=== PATIENT | female | born 1985 | race Caucasian/White ===

== ENCOUNTER → 2019-06-16 15:38 | Outpatient (CLI) | payer OTHER, SELFPAY ==
[2019-06-16 14:18] VITALS: BMI 19.1
[2019-06-16 16:32] LABS: Absolute Lymphocyte Count 2.17 X10^3/uL (0.83-4.51); Absolute Neutrophil Count 4.9 X10^3/uL (2.0-7.7); Basophil# 0.05 X10^3/uL; Basophil% 0.6 % (0-1); Eosinophil# 0.15 X10^3/uL; Eosinophils% 1.9 % (0-5); Hematocrit 36.4 % (37-47); Hemoglobin 12.4 g/dL (12.0-15.0); Lymphocyte # 2.17 X10^3/ul (4.0); Lymphocyte % 27.7 % (19-41); Mean Corp Hgb Conc 34.1 g/dL (32-36); Mean Corpuscular Hgb 30.6 pg (27.0-32.0); Mean Corpuscular Volume 89.9 fL (81-99); Mean Platelet Vol. 11.2 fl (6.2-12.0); Monocyte# 0.52 X10^3/uL; Monocyte% 6.6 % (0-10); NRBC Flagged by Analyzer 0 % (0-5); Neutrophil % 62.7 % (47-70); Platelet Count 298 K/mm3 (150-450); RBC Distribution Width CV 12.2 % (11.6-14.6); RBC Distribution Width SD 39.6 fl (35.1-43.9); Red Blood Count 4.05 M/mm3 (4.2-5.4); White Blood Count 7.8 K/mm3 (4.4-11.0)
[2019-06-16 17:24] LABS: Amphetamine Urine VISTA NEGATIVE (<1000 ng/mL); Barbiturate Urine VISTA NEGATIVE (< 200 ng/mL); Benzodiazepine Urine VISTA NEGATIVE (< 200 ng/mL); Cocaine Urine VISTA NEGATIVE (< 300 ng/mL); Ecstacy Urine VISTA NEGATIVE (< 500 ng/mL); Methadone Urine VISTA NEGATIVE (< 300 ng/mL); PCP Urine VISTA NEGATIVE (< 25 ng/mL); THC Urine VISTA POSITIVE (< 50 ng/mL); Vista UDS pH Range 7
[2019-06-16 18:57] LABS: Chlamydia Trachomatis by PCR Negative (Negative); Neisserai gonorrhoeae by PCR Negative (Negative); Probe Check PASS; Sample Adequacy Control PASS; Specimen Processing Control PASS
[2019-06-17 09:07] LABS: HIV - WCH Non-Reactive (Nonreactive); Hepatitis B Surface Antigen Non-Reactive (Nonreactive); Hepatitis C Antibody Non-Reactive (Nonreactive); Rubella IgG 83.3 IU/mL
[2019-06-21 12:42] LABS: HPV APTIMA, High Risk Negative (Negative)
[2019-06-23 00:51] LABS: Rapid Plasmin Reagin (RPR) NONREACTIVE (NONREACTIVE)
== END ==
PROVIDERS: Referring Provider Obstetrics & Gynecology; Visit Provider Obstetrics & Gynecology
DX: Z34.90 Encounter for supervision of normal pregnancy, unspecified, unspecified trimester (principal); Z12.4 Encounter for screening for malignant neoplasm of cervix
CPT/HCPCS: 36415; 80307; 85025; 86592; 86703; 86762; 86803; 86850; 86900; 86901; 87086; 87088; 87340; 87491; 87591; 87624; 88175; G0145

== ENCOUNTER → 2019-10-21 | Outpatient (CLI) | payer OTHER, SELFPAY ==
[2019-09-22 09:13] VITALS: BMI 20.5
[2019-10-21 09:46] LABS: Glucose Challenge Gest 1H 50g 76 mg/dL (70-140)
[2019-10-21 09:54] LABS: Absolute Lymphocyte Count 2.05 X10^3/uL (0.83-4.51); Absolute Neutrophil Count 7.4 X10^3/uL (2.0-7.7); Basophil# 0.07 X10^3/uL; Basophil% 0.7 % (0-1); Eosinophil# 0.22 X10^3/uL; Eosinophils% 2.1 % (0-5); Hematocrit 31.2 % (37-47); Hemoglobin 10.5 g/dL (12.0-15.0); Lymphocyte # 2.05 X10^3/ul (4.0); Lymphocyte % 19.1 % (19-41); Mean Corp Hgb Conc 33.7 g/dL (32-36); Mean Corpuscular Hgb 31.9 pg (27.0-32.0); Mean Corpuscular Volume 94.8 fL (81-99); Mean Platelet Vol. 11.2 fl (6.2-12.0); Monocyte# 0.76 X10^3/uL; Monocyte% 7.1 % (0-10); NRBC Flagged by Analyzer 0 % (0-5); Neutrophil % 68.9 % (47-70); Platelet Count 296 K/mm3 (150-450); RBC Distribution Width CV 12.8 % (11.6-14.6); RBC Distribution Width SD 44.1 fl (35.1-43.9); Red Blood Count 3.29 M/mm3 (4.2-5.4); White Blood Count 10.7 K/mm3 (4.4-11.0)
[2019-10-21 16:40] LABS: Amphetamine Urine VISTA NEGATIVE (<1000 ng/mL); Barbiturate Urine VISTA NEGATIVE (< 200 ng/mL); Benzodiazepine Urine VISTA NEGATIVE (< 200 ng/mL); Cocaine Urine VISTA NEGATIVE (< 300 ng/mL); Ecstacy Urine VISTA NEGATIVE (< 500 ng/mL); Methadone Urine VISTA NEGATIVE (< 300 ng/mL); PCP Urine VISTA NEGATIVE (< 25 ng/mL); THC Urine VISTA NEGATIVE (< 50 ng/mL); Vista UDS pH Range 6
== END | disposition home or self-care (01) ==
PROVIDERS: Nurse Practitioner Women's Health; Referring Provider Obstetrics & Gynecology; Visit Provider Obstetrics & Gynecology
DX: O09.90 Supervision of high risk pregnancy, unspecified, unspecified trimester (principal); O99.320 Drug use complicating pregnancy, unspecified trimester; F12.90 Cannabis use, unspecified, uncomplicated; Z36.89 Encounter for other specified antenatal screening; Z3A.00 Weeks of gestation of pregnancy not specified
CPT/HCPCS: 36415; 80307; 82950; 85025

== ENCOUNTER → 2019-11-04 | Outpatient (CLI) | payer OTHER, SELFPAY ==
[2019-11-04 09:46] VITALS: BMI 22.6
[2019-11-04 14:47] LABS: Amphetamine Urine VISTA NEGATIVE (<1000 ng/mL); Barbiturate Urine VISTA NEGATIVE (< 200 ng/mL); Benzodiazepine Urine VISTA NEGATIVE (< 200 ng/mL); Cocaine Urine VISTA NEGATIVE (< 300 ng/mL); Ecstacy Urine VISTA NEGATIVE (< 500 ng/mL); Methadone Urine VISTA NEGATIVE (< 300 ng/mL); PCP Urine VISTA NEGATIVE (< 25 ng/mL); THC Urine VISTA NEGATIVE (< 50 ng/mL); Vista UDS pH Range 6
== END | disposition home or self-care (01) ==
LOC: LABSPEC 12:40
PROVIDERS: Referring Provider Obstetrics & Gynecology; Visit Provider Obstetrics & Gynecology
DX: Z34.90 Encounter for supervision of normal pregnancy, unspecified, unspecified trimester (principal)
CPT/HCPCS: 80307

== ENCOUNTER → 2019-11-18 | Outpatient (CLI) | payer OTHER, SELFPAY ==
[2019-11-18 09:34] VITALS: BMI 22.2
--- NOTE | 2019-11-18 18:40 | US_ITS ---
STUDY: SECOND AND THIRD TRIMESTER OBSTETRICAL ULTRASOUND REASON FOR EXAM: Female, 34 years old GROWTH SMALL FOR GESTATIONAL AGE LMP: TECHNIQUE: Transabdominal TECHNICAL QUALITY: Adequate. PRIOR ULTRASOUND: None. FINDINGS: There is a single intrauterine fetus. The fetus is in a cephalic presentation. There is demonstrated cardiac activity with a heart rate of 133 bpm. There is a normal amniotic fluid volume. The largest amniotic fluid pocket measures 4.9 x 5.2 cm. The amniotic fluid index (MARYJO) is 10.55 cm. The placenta is anterior and fundal There are Grade 1 placental changes. The cervix measures 3.4 cm in length. The bilateral adnexal regions are nonvisualized. BIOMETRY: BPD: 7.2 cm: 28 weeks, 6 days HC: 28.16 cm: 30 weeks, 6 days AC: 25.58 cm: 29 weeks, 5 days FL: 5.95 cm: 30 weeks, 6 days CI: 0.79 FL/BPD: 0.83 FL/HC: FL/AC: 0.23 HC/AC: 1.1 age by current US: 29 weeks, 4 days. BETY by current US: 01/30/2020. Estimated weight: 1512 grams, +/- 227 grams, 57 %. age by prior US: weeks, days. BETY by prior US: . Age by LMP: 33 weeks, 0 days. BETY by LMP: 01/06/2020. US/OB Limited With Biometrics IMPRESSION: Viable intrauterine gestation approximately 29-30 weeks gestational age which is small relative to the menstrual age which was 33 weeks Recommend clinical correlation and follow-up studies Electronically Signed: Kye Hogue MD at 20:24 EDT , Service support ,
== END | disposition home or self-care (01) ==
PROVIDERS: Visit Provider Obstetrics & Gynecology
DX: O36.5930 Maternal care for other known or suspected poor fetal growth, third trimester, not applicable or unspecified (principal); Z3A.00 Weeks of gestation of pregnancy not specified
CPT/HCPCS: 76816

== ENCOUNTER → 2019-12-15 | Outpatient (CLI) | payer OTHER, SELFPAY ==
[2019-12-15 09:23] VITALS: BMI 22.2
== END | disposition home or self-care (01) ==
LOC: LABSPEC 13:43
PROVIDERS: Referring Provider Obstetrics & Gynecology; Visit Provider Obstetrics & Gynecology
DX: Z34.90 Encounter for supervision of normal pregnancy, unspecified, unspecified trimester (principal)
CPT/HCPCS: 87081

== ENCOUNTER 2019-12-18 23:30 | Inpatient (IN) | payer OTHER, SELFPAY ==
[2019-12-15 09:23] VITALS: BMI 22.2
[2019-12-18 23:14] VITALS: BMI 24.1
[2019-12-18 23:19] VITALS: TEMP 36.8; O2SAT 99
[2019-12-18 23:22] VITALS: BP 122/78
[2019-12-18 23:23] VITALS: PULSE 88; O2SAT 99
[2019-12-18 23:31] LABS: ROM Internal Control Test YES-OK TO RESULT pt. (Internal QC)
[2019-12-18 23:32] LABS: ROM Patient Test POSITIVE (Negative)
[2019-12-19] VITALS (83 sets, daily range): BP systolic 83–151; BP diastolic 42–83; PULSE 71–116; RESP 16; TEMP 36.1–37.1; O2SAT 82–100
[2019-12-19] MEDS: Lactated Ringers 1,000 ML 50 ML IV (00:25)
[2019-12-19 00:37] LABS: Absolute Lymphocyte Count 1.89 X10^3/uL (0.83-4.51); Absolute Neutrophil Count 9.4 X10^3/uL (2.0-7.7); Basophil# 0.08 X10^3/uL; Basophil% 0.6 % (0-1); Eosinophil# 0.15 X10^3/uL; Eosinophils% 1.2 % (0-5); Hematocrit 34.3 % (37-47); Hemoglobin 11.1 g/dL (12.0-15.0); Lymphocyte # 1.89 X10^3/ul (4.0); Lymphocyte % 14.6 % (19-41); Mean Corp Hgb Conc 32.4 g/dL (32-36); Mean Corpuscular Hgb 31.6 pg (27.0-32.0); Mean Corpuscular Volume 97.7 fL (81-99); Mean Platelet Vol. 11.5 fl (6.2-12.0); Monocyte# 0.97 X10^3/uL; Monocyte% 7.5 % (0-10); NRBC Flagged by Analyzer 0 % (0-5); Neutrophil % 72.3 % (47-70); Platelet Count 273 K/mm3 (150-450); RBC Distribution Width CV 12.8 % (11.6-14.6); Red Blood Count 3.51 M/mm3 (4.2-5.4)
[2019-12-19] MEDS: miSOPROStol 25 MCG TABLET VAGINAL (00:45)
[2019-12-19 01:26] LABS: Amphetamine Urine VISTA NEGATIVE (<1000 ng/mL); Barbiturate Urine VISTA NEGATIVE (< 200 ng/mL); Benzodiazepine Urine VISTA NEGATIVE (< 200 ng/mL); Cocaine Urine VISTA NEGATIVE (< 300 ng/mL); Ecstacy Urine VISTA NEGATIVE (< 500 ng/mL); Methadone Urine VISTA NEGATIVE (< 300 ng/mL); PCP Urine VISTA NEGATIVE (< 25 ng/mL); THC Urine VISTA NEGATIVE (< 50 ng/mL); Vista UDS pH Range 6
[2019-12-19] MEDS: Lactated Ringers 500 ML 999 ML IV ×4 (03:57→14:25)
[2019-12-19] MEDS: fentaNYL 100 MCG/2 ML Ampul IV (05:27)
[2019-12-19] MEDS: Oxytocin 30 units/NS 500 ml 30 UNITS/500 ML IV.SOLN IV (05:47)
[2019-12-19] MEDS: fentaNYL-bupivacaine (epidural) 100 ML BAG EPIDURAL ×2 (08:24→13:21)
[2019-12-19] MEDS: 0.9% Normal Saline Single 100 ML IV.SOLN. IY (09:29)
[2019-12-19] MEDS: ePHEDrine Sulfate 50 MG/ML Ampul 10 MG IV (10:07)
[2019-12-19] MEDS: Lactated Ringers 1,000 ML 200 ML IV (12:08)
--- NOTE | 2019-12-19 12:57 | HP.PCM_ITS ---
- Problem List (1) PROM (premature rupture of membranes) Status: Acute (2) Uterine size date discrepancy Status: Acute Comment: growth us ordered. nl nisha, preivous growth 57%ile (3) Influenza vaccination declined Status: Acute (4) Iron (Fe) deficiency anemia Status: Acute (5) Supervision of high-risk Status: Acute Qualifiers: Comment: PRR BETY 01/06/2020 girl Jessie Spouse: Solitario (6) Marijuana use Status: Acute Comment: + 06/16/19, quit, plan random screening.10/21/19 negative (7) Anxiety and depression Status: Acute Comment: currently in counseling- no medication (8) Status: Acute Qualifiers: Comment: declined genetic, carrier and NTD. anatomy normal, growth US normal History Date of Admission: 12/18/19 Final BETY: 01/06/20 Gestational age: 37 Weeks and 3 Days History of this : This is a 34 year-old, G 1P0 at 37 weeks gestational age presents with premature rupture of membranes. Patient complains of clear loss of fluid since 10:00 on 1010 and upon evaluation had a positive ROM plus in active leaking. Cervix was not noted to be dilated.. Medical History: Medical History (Last Reviewed 12/15/19 @ 09:23 by Jeannine Will) Anxiety and depression F41.9, F32.9 counseling virtual Grand mal seizure G40.409 1 seizure Allergies Sulfa (Sulfonamide Antibiotics) Allergy (Mild, Verified 12/18/19 23:30) other as a child Home Medications: Home Medications vitamin#30 30 mg iron-10 mg iron-folic acid 1 mg-omg3 capsule 1 cap PO DAILY 06/16/19 Smoking Status: Former smoker Substance Use Type: Marijuana Number of Fetus(es): 1 NST - FHR Rate Baby A Baseline: 150 Variability:: Moderate Accelerations:: 15 x 15 NST Reactive:: Yes FHR Category:: Category I Uterine Activity:: irregular History Past Pregnancies: Past Pregnancies Delivery Date Name GA/ Weeks Outcome Route Wt Infant Sex Labor Length Anesthesia Delivery Location Provider FOB Labs: Mom's Labs & Results 12/18/19 12/19/19 12/19/19 23:15 00:05 00:10 WBC 13.0 H RBC 3.51 L Hgb 11.1 L Hct 34.3 L MCV 97.7 MCH 31.6 MCHC 32.4 RDW Std Deviation 45.0 H RDW Coeff of Christine 12.8 Plt Count 273 MPV 11.5 Immature Gran % (Auto) 3.800 H Neut % (Auto) 72.3 H Lymph % (Auto) 14.6 L Morton % (Auto) 7.5 Eos % (Auto) 1.2 Baso % (Auto) 0.6 Absolute Neuts (auto) 9.4 H Absolute Lymphs (auto) 1.89 Nucleated RBC % 0 Vag Amniotic Fld Detect POSITIVE H Urine Opiates Screen NEGATIVE Urine Methadone Screen NEGATIVE Ur Barbiturates Screen NEGATIVE Ur Phencyclidine Scrn NEGATIVE Ur Amphetamines Screen NEGATIVE U Methamphetamin-MDMA NEGATIVE U Benzodiazepines Scrn NEGATIVE Urine Cocaine Screen NEGATIVE U Cannabinoids Screen NEGATIVE Ur Drug Screen Comment COVID-19 (ABEL) Blood Type Antibody Screen 12/19/19 12/19/19 00:25 00:35 WBC RBC Hgb Hct MCV MCH MCHC RDW Std Deviation RDW Coeff of Christine Plt Count MPV Immature Gran % (Auto) Neut % (Auto) Lymph % (Auto) Morton % (Auto) Eos % (Auto) Baso % (Auto) Absolute Neuts (auto) Absolute Lymphs (auto) Nucleated RBC % Vag Amniotic Fld Detect Urine Opiates Screen Urine Methadone Screen Ur Barbiturates Screen Ur Phencyclidine Scrn Ur Amphetamines Screen U Methamphetamin-MDMA U Benzodiazepines Scrn Urine Cocaine Screen U Cannabinoids Screen Ur Drug Screen Comment COVID-19 (ABEL) Not Detected Blood Type O POSITIVE Antibody Screen NEGATIVE Course Did the patient receive Yes care? Labs Blood Type: O RH: POSITIVE RPR/VDRL/Syphilis Nonreactive Rubella status Immune HbSAg Negative Date Done: 06/16/19 Chlamydia Negative Gonorrhea Negative HIV/AIDS Non-Reactive Group B Strep: Negative Current Obstetrical History Gestational Diabetes No Incompetent Cervix No Infertility No IUGR No Macrosomia No Hypertension/Pre-eclampsia No Placenta Previa/Abruption No PTL/PROM No Uterine anomaly No Oligohydramnios No Polyhydramnios No Multiple gestation No Past Medical History Asthma No Diabetes No Hypertension No Heart disease No Mitral valve prolapse No Neurologic/Seizure disorder/ Yes: grand mal seizure at age 13- tegratal for 2 Migraines years then stopped the medicati Kidney disease No Liver disease No Varicosities No Clotting disorders/Hx of DVT No Thyroid Dysfunction No Other medical diseases No Psychiatric disorders Yes: anxiety/depression Major trauma No Abnormal PAP smear Yes: 2010- negative ever since Sleep apnea No Mammogram in the last 2 years No Social History Marital Status: SINGLE Alleged father Solitario Fine Hx Smoking No Smoking Status Former smoker Substance Use Type Marijuana Have you had any previous pt used to smoke marijuana everyday. she stopped inpatient or outpatient as soon as she got and hasnt since. treatment she also smoked cigarettes and stopped that all together as well. Expected Delivery Method: Spontaneous Vaginal Review of Systems Constitutional: Denies: Fever, Malaise Eyes: Denies: Blurred vision, Vision Change HEENT: Denies: Head Aches, Visual Changes Cardiovascular: Denies: Chest Pain, Palpitations Respiratory: Denies: Cough, Shortness of Breath, Wheezing Gastrointestinal: Denies: Abdominal Pain, Diarrhea, Nausea, Vomiting Genitourinary: Denies: Dysuria, Hematuria Gynecological: Reports: Vaginal discharge Musculoskeletal: Denies: Joint Pain, Muscle pain Skin: Denies: Lesions, Rash Neurological: Denies: Blurred vision, Focal weakness, Headaches Psychiatric: Denies: Anxiety, Depression Endocrine: Denies: Heat/ Cold Intolerance Hematologic/ Lymphatic: Denies: Easy Bruising, Easy Bleeding Physical Exam Vitals: Vital Signs Temp Pulse BP Pulse Ox 97.8 F 93 93/55 L 98 12/19/19 12:06 12/19/19 12:06 12/19/19 12:06 12/19/19 12:06 General: Alert, Cooperative, No apparent distress HEENT: Atraumatic, Normocephalic. Negative for: Thyromegaly, Lymphadenopathy Cardiovascular: Regular rate Lungs: Normal air movement Abdomen: Soft, Non Tender, Gravid Neurological: Deep Tendon Reflexes 2+/4 and Symmetrical, Neuro grossly intact. Negative for: Clonus CODING TECHNICIAN: Normal external genitalia. Negative for: Vulvar lesions Estimated gestational size: Small for gestational age - EFW 4 1/2 5# Presentation: Cephalic Cervix Dilation (cm): 0 Station: 0 Effacement (%): 50 Assessment/Plan All Active Problems (Last Reviewed 12/15/19 @ 09:23 by Jeannine Will) PROM (premature rupture of membranes) (Acute) Uterine size date discrepancy (Acute) Influenza vaccination declined (Acute) Iron (Fe) deficiency anemia (Acute) Supervision of high-risk (Acute) Marijuana use (Acute) Anxiety and depression (Acute) (Acute) This is a 34 year-old, , at 37 weeks gestational age presents with PROM. Patient presents with premature rupture membranes cervix closed with no regular contractions. Recommend starting with Cytotec, 1 dose given and some intermittent heart rate decelerations were noted and therefore expectant management followed by Pitocin were recommended to be started for augmentation if needed. Overall reassuring tracing. Pain management: Plans epidural. GBS negative. Management of any complications: Significant other tested positive for COVID the beginning of the week, patient has been avoiding direct contact and COVID test performed now is negative for her. Patient is asymptomatic and afebrile. Patient measuring small for gestational age. Estimated weight may be 2500 g recommend having bladder blower at delivery. I have reviewed the [facility] and made any clinically relevant updates.
--- NOTE | 2019-12-19 13:16 | PCM.PN.BLA ---
Progress Note heart rate tracing 150 and mild to moderate variability. Isolated late deceleration and occasional episodes of periodic mild variables. Variable decelerations resolve with position changes and IV fluid bolus. Cervical exam after 1 cm but head is at 0 station. Recommend Ruby bulb be placed, discussed with patient possible increased risk for infection but reasonable consideration versus increasing Pitocin due to heart rate tracing. No signs or symptoms of clinical infection at this time. STROKE Vital Signs/Narrative: Vital Signs Temp Pulse BP Pulse Ox 12/19/19 12:59 98.3 F 99 12/19/19 12:58 91 100/56 L 12/19/19 12:06 97.8 F 93 93/55 L 98 12/19/19 11:00 98.3 F 12/19/19 10:54 90 101/58 L 12/19/19 10:49 111 H 99/57 L 12/19/19 10:47 95 99 12/19/19 10:44 103 H 100/59 L 12/19/19 10:42 116 H 100 12/19/19 10:40 113 H 104/59 L 12/19/19 10:37 105 H 100 12/19/19 10:36 102 H 111/57 L 12/19/19 10:32 104 H 100 12/19/19 10:29 97 94/55 L 12/19/19 10:27 94 100 12/19/19 10:25 92 100/55 L 12/19/19 10:22 88 100 12/19/19 10:20 105 H 99/56 L 12/19/19 10:17 87 100 12/19/19 10:14 93 95/54 L 12/19/19 10:12 87 100 12/19/19 10:09 86 92/56 L 12/19/19 10:07 85 100 12/19/19 10:04 90 89/54 L 12/19/19 10:02 98.0 F 82 91/52 L 100 12/19/19 09:55 85 88/52 L 12/19/19 09:49 81 83/51 L 12/19/19 09:45 77 83/51 L 12/19/19 09:39 83 87/50 L 12/19/19 09:35 80 83/46 L 12/19/19 09:30 89 100/57 L 12/19/19 09:24 97 93/50 L 12/19/19 09:20 91 99/56 L
[2019-12-19] MEDS: Amnioinfusion- 0.9% NS 1,000 ML IV.SOLN. INTRA-UTER (14:05)
--- NOTE | 2019-12-19 14:08 | PCM.PN.BLA ---
Progress Note called to evaluate due to FHT 150 min variability recurrent mild periodic variables cat II tracing. cash bulb removed no 1-2 90 0 station. cervix still firm. fse and iupc placed, will give amnioinfusion now and change position again. discussed with patient exp management at this time, continue monitor to ensure tolerance of labor. pitocin at 8 mU, will titrate PRN. STROKE Vital Signs/Narrative: Vital Signs Temp Pulse BP Pulse Ox 12/19/19 13:56 97.8 F 106 H 100/58 L 99 12/19/19 12:59 98.3 F 99 12/19/19 12:58 91 100/56 L 12/19/19 12:06 97.8 F 93 93/55 L 98 12/19/19 11:00 98.3 F 12/19/19 10:54 90 101/58 L 12/19/19 10:49 111 H 99/57 L 12/19/19 10:47 95 99 12/19/19 10:44 103 H 100/59 L 12/19/19 10:42 116 H 100 12/19/19 10:40 113 H 104/59 L 12/19/19 10:37 105 H 100 12/19/19 10:36 102 H 111/57 L 12/19/19 10:32 104 H 100 12/19/19 10:29 97 94/55 L 12/19/19 10:27 94 100 12/19/19 10:25 92 100/55 L 12/19/19 10:22 88 100 12/19/19 10:20 105 H 99/56 L 12/19/19 10:17 87 100 12/19/19 10:14 93 95/54 L 12/19/19 10:12 87 100 12/19/19 10:09 86 92/56 L
[2019-12-19] MEDS: Sodium Citrate/Citric Acid 30 ML UDC PO (15:21)
[2019-12-19] MEDS: Cefazolin 2 GM in 0.9% Normal Saline 100 ML IV (15:32)
--- NOTE | 2019-12-19 16:28 | PCM.OPRPT ---
Problem List (1) PROM (premature rupture of membranes) Status: Acute (2) Uterine size date discrepancy Status: Acute Comment: growth us ordered. nl nisha, preivous growth 57%ile (3) Influenza vaccination declined Status: Acute (4) Iron (Fe) deficiency anemia Status: Acute (5) Supervision of high-risk Status: Acute Qualifiers: Comment: PRR BETY 01/06/2020 girl Jessie Spouse: Solitario (6) Marijuana use Status: Acute Comment: + 06/16/19, quit, plan random screening.10/21/19 negative (7) Anxiety and depression Status: Acute Comment: currently in counseling- no medication (8) Status: Acute Qualifiers: Comment: declined genetic, carrier and NTD. anatomy normal, growth US normal Delivery Classification: SCOTT Final BETY: 01/06/20 Gestational age: 37 Weeks and 3 Days psychiatric nursing aide: Bridget Mckeon Type of Anesthesia:: Epidural Special Medications: none Implants Used: none Date of Procedure: 12/19/19 Pre-Operative Diagnosis: NRFHTS remote from delivery 2 cm PROM suspected IUGR Post-Operative Diagnosis: sga Description of Procedure: Patient presented with premature rupture of membranes at 37 weeks and was noted to be 0 cm dilated. Patient was given a dose of Cytotec due to several intermittent decelerations patient was monitored expectantly and then started on Pitocin for induction of labor due to lack of spontaneous cervical change. Ruby bulb was also placed to aid in cervical dilation however after 4 hours the Ruby bulb still had not spontaneously fallen out and therefore it was removed and patient was noted to be 2/80 and 0 station but firm consistency to the cervix. Patient had intermittent category 2 tracing with periods of minimal to moderate variability and periods of mild to moderate periodic variable decelerations that initially resolved with position changes and amnioinfusion. However the pattern remained persistent with recurrent periodic variable decelerations minimal variability and no further cervical change despite interventions including turning off Pitocin. Patient was remote from delivery and therefore the decision was made to proceed with a primary . epidural dosed and found to be adequate. The patient was placed in the dorsal supine position with leftward tilt. Patient was prepped and draped in the normal sterile fashion. Pfannenstiel skin incision was made with the scalpel and carried through to the underlying layer of fascia with the scalpel. Fascia was nicked in the midline and the incision extended laterally. The rectus bellies were dissected off superiorly and inferiorly with out complication both sharply and bluntly. The peritoneum was entered digitally. The incision was stretched and a low transverse uterine incision was made with the scalpel. The infant's head was delivered atraumatically followed by the anterior and posterior shoulders without complication the rest of the delivered. The cord was clamped and cut and the was handed off to awaiting nurse. The placenta was delivered spontaneously immediately following and was noted to be intact and have a three-vessel cord. The uterus was exteriorized cleared of all clots and debris, and the incision was closed in a double layer closure using #1 Monocryl. The ovaries and fallopian tubes were noted to be within normal limits. The uterus was returned to the maternal abdomen and gutters were cleared of all clots and debris. The peritoneum was closed with 3-0 Monocryl in a running fashion. Gloves were changed prior to fascial closure. Fascia was closed with 0 PDS in a running fashion. Subcutaneous tissue was copiously irrigated and the skin was closed with 3-0 Monocryl in a subcuticular fashion. Mepilex dressing was applied without complication. Patient was taken to recovery in stable condition. It was discussed with the patient that based on the clinical information obtained during this encounter, combined with her history, at this time I would recommend vaginal or for future deliveries if further pregnancies are desired. Amniotic Membrane Rupture Type: Spontaneous Amniotic Fluid Description: Clear Placenta Disposition: [facility] Cord Entanglement: None Esitmated Blood Loss (ml): 600 Gender: Female Delayed cord clamping: Yes Antibiotic Given: Ancef 2 grams IV x1, Zithromax 500 mg/5 mL X1 Pt instructed on risks of surgery: Bleeding, Anesthesia Risks, Infection, Injury to surrounding structure(s) including bowel and bladder Complications: None - Admit VTE Documentation VTE Present on Admission: No VTE Mechan Device Prophylaxis: SCD's Multi Select Codes - Urinary/Genital Urinary/Genital CPT Codes: 92206 Delivery [facility]
[2019-12-19] MEDS: Oxytocin 30 units/NS 500 ml 30 UNITS/500 ML IV.SOLN 167 UNITS IV (16:45)
--- NOTE | 2019-12-19 17:02 | PLAC_PTH ---
PATIENT: RAMÍREZ SKY LOC: [facility] U#:[id number] AGE/SX: 34/F [facility]: Dr. Juana Duncan MD : 1985 BED: 1 DIS: 12/22/2019 SPEC #: [id number] RECD: 12/19/19 17:56 STATUS: SUMAN WENDI #: [id number] GLORIA: 12/19/19 17:[address]: Juana Duncan DEPT: SURGICAL PATHOLOGY RECD BY: Judith Jose ENTERED: 12/20/19 08:18 SP TYPE: PLACENTA OTHR DR: No Primary Care Phys Tissues: Placenta, NOS Procedures: Surgery Specimen Level V HEADER OPERATION: Primary section PRE-OP DIAGNOSIS: Labor TISSUE SUBMITTED: Placenta MICROSCOPIC DIAGNOSIS Rolle placenta (416 gm): Umbilical cord - trivascular with no inflammation. Placental membranes - mild decidual chronic inflammation. Placental disc - remote infarct, intravillous congestion and mild chronic decidual inflammation. AM:rose 12/22/19 MICROSCOPIC DESCRIPTION Slides are reviewed. GROSS DESCRIPTION SPECIMEN: PLACENTA / CLINICAL INFORMATION: A. Weight: 2.07 kg B. Gestational Age: 37 weeks C. Sex: Female PLACENTAL WEIGHT (POST FIXATION): 416 gm PLACENTAL DIMENSIONS: 20 x 18 x 3 cm PLACENTAL SHAPE: Triangular PLACENTAL WEIGHT FOR GESTATIONAL AGE: Within 10-99th percentile MEMBRANES - Present A. Insertion: Marginal B. Site of rupture from edge: 4 cm from edge of placental disc C. Color of membrane: Pennington-rodrigez D. Abnormalities: None UMBILICAL CORD - Present A. Color: Pennington-rodrigez B. Insertion: Paracentrally 1 cm away from the margin C. Length: 33 cm D. Diameter: 1.2 cm E. Number of vessels: Three F. Abnormalities: None PLACENTAL DISC - Present A. Color of surface: Pennington-rodrigez B. surface abnormalities: None C. Maternal cotyledons: Intact with minimal tears D. Attached retro placental clot: No clot E. Cut surface: Dark red and spongy F. Lesions: Sections reveal a pennington, indurated area measuring 1 cm in greatest dimension. G. Separate clot: Absent SECTIONS SUBMITTED: 1. Membrane roll 2. Cord, maternal end 3. Cord, end 4. Placental disc, and maternal surfaces, lesion 5. Placental disc, and maternal surfaces 6. Placental disc, and maternal surfaces SJ:rose 12/21/19 TC:3 CPT: 26034
[2019-12-19 18:20] LABS: Pathology Specimen OB SEE PATHOLOGY REPORT
[2019-12-19] MEDS: Acetaminophen 500 MG Tablet 1000 MG PO ×2 (18:28→23:53)
[2019-12-19] MEDS: Lactated Ringers 1,000 ML 100 ML IV (19:45)
[2019-12-19] MEDS: Ketorolac 30 MG/ML Syringe IV (22:21)
[2019-12-20] VITALS (7 sets, daily range): BP systolic 84–113; BP diastolic 42–66; PULSE 68–96; RESP 16; TEMP 36.6–36.9; O2SAT 99–100
[2019-12-20] MEDS: 0.9% Saline Lock 10 ML Syringe IV (03:56)
[2019-12-20] MEDS: Ketorolac 30 MG/ML Syringe IV (03:56)
[2019-12-20 04:38] LABS: Hematocrit 25.6 % (37-47); Hemoglobin 8.9 g/dL (12.0-15.0); Mean Corp Hgb Conc 34.8 g/dL (32-36); Mean Corpuscular Hgb 32.8 pg (27.0-32.0); Mean Corpuscular Volume 94.5 fL (81-99); Mean Platelet Vol. 11.8 fl (6.2-12.0); Platelet Count 233 K/mm3 (150-450); RBC Distribution Width SD 43.8 fl (35.1-43.9); Red Blood Count 2.71 M/mm3 (4.2-5.4); White Blood Count 20.5 K/mm3 (4.4-11.0)
[2019-12-20] MEDS: Acetaminophen 500 MG Tablet 1000 MG PO ×3 (05:56→18:50)
--- NOTE | 2019-12-20 08:05 | PCM.PN.OB ---
Patient Problems: Active and Suspected Problems (Last Reviewed 12/15/19 @ 09:23 by Jeannine Will) PROM (premature rupture of membranes) (Acute) Objective: Patient doing well without complaints. Tolerating PO. Ambulating and voiding without difficulty. /baby in SPC due to blood sugars. Denies chest pain, shortness of breath, calf pain/swelling, fevers, chills, lightheadedness. Noted WBC at 20, Hgb 8.9. - Physical Exam Vitals/I&O's: Vital Signs Temp Pulse Resp BP Pulse Ox 97.9 F 75 16 95/53 L 100 12/20/19 03:50 12/20/19 03:50 12/20/19 03:50 12/20/19 03:50 12/20/19 03:50 Oxygen Delivery Method Room Air Weight: 154 lb 2 oz Body Mass Index (BMI) 24.1 Intake and Output for Last 24 Hours 12/18/19 12/19/19 12/20/19 23:59 23:59 23:59 Intake Total 5160.63 / 5160.63 818.33 / 818.33 Output Total 3550 / 3550 600 / 600 Balance 1610.63 / 1610.63 218.33 / 218.33 General: Alert, Oriented x3 Abdomen: Soft, Non-Distended, - - FF below U. Dressing dry and intact. Appropriately tender Laboratory Results 12/19/19 00:05: MCV 97.7, MCHC 32.4 D 12/20/19 04:10: WBC 20.5 H, RBC 2.71 L, Hgb 8.9 L, Hct 25.6 L, MCV 94.5, MCH 32.8 H, MCHC 34.8, RDW Std Deviation 43.8, RDW Coeff of Christine 13.0, Plt Count 233, MPV 11.8 Current Medications Acetaminophen (Tylenol) 1,000 mg PO Q6 [facility] Last Admin: 12/20/19 05:56 Dose: 1,000 mg Documented by: Bisacodyl (Dulcolax) 10 mg RECTAL UD PRN PRN Reason: If no BM Hydrocortisone (Hytone) 1 applic TOPICAL TID PRN PRN; Protocol PRN Reason: Discomfort Lactated Ringer's () 1,000 mls @ 100 mls/hr IV .Q10H [facility] Last Infusion: 12/20/19 03:56 Dose: Infused Documented by: Ketorolac Tromethamine (Toradol (Bkc)) 30 mg IV Q6H [facility] Stop: 12/20/19 16:01 Last Admin: 12/20/19 03:56 Dose: 30 mg Documented by: Methylergonovine Maleate (Methergine) 0.2 mg IM X1 PRN PRN Reason: Uterine Atony Naproxen (Naprosyn) 500 mg PO Q8 [facility] Ondansetron HCl (Zofran) 4 mg IV Q4H PRN PRN PRN Reason: Nausea Oxycodone HCl (Oxyir) 5 - 10 mg PO Q4H PRN PRN PRN Reason: Pain Score 4-10 Prochlorperazine Edisylate (Compazine Iv) 10 mg IV Q6H PRN PRN PRN Reason: NAUSEA Senna/Docusate Sodium (Senokot-S, Surekha-Colace) 0 tablet PO DAILY [facility] Simethicone (Mylicon) 80 mg PO PCHS PRN PRN Reason: Indigestion/stomach pain Sodium Chloride () 5 - 15 ml IV UD PRN PRN Reason: SALINE FLUSH Last Admin: 12/20/19 03:56 Dose: 10 ml Documented by: Medical Necessity - Tobacco Use Smoking Status: Former smoker Assessment/Plan All Active Problems (Last Reviewed 12/15/19 @ 09:23 by Jeannine Will) PROM (premature rupture of membranes) (Acute) Uterine size date discrepancy (Acute) Influenza vaccination declined (Acute) Iron (Fe) deficiency anemia (Acute) Supervision of high-risk (Acute) Marijuana use (Acute) Anxiety and depression (Acute) (Acute) s/p LTCS PPD # 1 1. routine post care 2. breast feeding- support given 3. rh positive 4. rubella immune 5. Repeat CBC later today.
[2019-12-20] MEDS: Naproxen 250 MG Tablet 500 MG PO ×2 (11:03→21:45)
[2019-12-20] MEDS: Senna/Docusate Sodium 1 Tablet PO (11:03)
[2019-12-20] MEDS: oxyCODONE 5 MG Tablet PO ×2 (13:20→17:27)
--- NOTE | 2019-12-20 16:01 | CASEMGMT ---
Social Work Assessment Labor and Delivery Unit Date of Referral: 12/19/2019 Time of Referral: 1038 Referred By: Nursing staff Date of Intervention: 12/20/2019 Time of Intervention: 1601 Reason for Referral: Mother of baby (MOB) with positive THC during . MOB with history of Anxiety and Depression. History obtained from: MOB, Father of baby (FOB), MOB?s mother (Gilda Holbrook), chart, nursing staff. Household composition: MOB, FOB (Solitario Fine), and now this , Jessie Fine live in private home together. Patient's parent/guardian status: MOB and FOB have been together for 2 ? years. MOB reports that was planned and accepted. FOB testing positive for COVID-19 the day prior to MOB going into labor and unable to physically be present for delivery. MOB?s mother, Gilda Holbrook present as support person. Medical History: MOB with history prior to this infant being born. MOB with Emergency at 37 weeks. MOB with history of Anxiety and Depression. MOB with appropriate care visits. Female born on 12/19/2017 with weight of 2010g and apgars of 9 and 9 at 1min and 5min. Infant to follow with [facility] Pediatricians. Educational Status: MOB denies any issues with comprehension or understanding. Financial Status: MOB denies any current financial concerns as MOB?s mother is assisting. FOB works full-time for [employer]. MOB currently plans to be a homemaker until adjusting to life with and then finding a job. Infant Supplies: MOB reports to have needed supplies including a crib and car seat. MOB reports plan to breast feed. MOB reports is going well. Childcare/Caregiver(s): MOB plans to be primary care provider for until returning to work when MOB plans to utilize family supports. Transportation: Denies any issues with transportation. Programs/Agencies Involved: Reports to have applied for [facility] and plans to follow up when is discharged. Children Services/Legal Issues: Denies any history of children services or legal issues. Mental Health History: MOB reports history of Anxiety and Depression. MOB reports history of counseling services but ?my counselor was becoming my friend.? MOB denies active counseling services but interest in establishing with counseling services again. MOB denies any suicidal thoughts/plans/intents. MOB reporting that prior work environment was ?very toxic.? MOB reports to have had ?high? anxiety from past work environment. MOB reporting to feel ?good now.? This social human services assistants able to facilitate conversation with MOB about risk for Depression including signs and symptoms. MOB receptive to conversation and engaged. Substance Use History: MOB with history of daily use of THC to manage Anxiety per MOB. MOB reports to have stopped using THC when discovering . MOB with positive tox screen for THC on 06/16/2019 and aware of pending meconium. MOB denies any other substance abuse/use. FOB currently smokes tobacco and ?some weed.? MOB and FOB able to report that if substance is being used to not be used around and that infant would be left in the charge of a non-using adult. MOB also reporting that there is no smoking inside the home. Maternal and Infant Drug Screens: MOB with positive tox screen for THC on 06/16/2019. MOB with negative tox screen on admission. with negative urine screen. with pending meconium. PHQ9: Did not trigger. Family/Social Stressors: FOB with current diagnosis of COVID-19. currently in SCN due to blood sugars needing to be monitored. Support Systems: MOB reports to have support from FOB and MOB?s mother. MOB denies any needs/concerns for supports. FOB is to no longer be injections on 12/26/2019 per MOB?s report. Not sure when will be cleared for discharge. MOB has been speaking with nursing staff about safe plan for with FOB being positive for COVID-19. Depression and Anxiety/Shaken Baby/Safe Sleeping: This social human services assistants providing MOB with written information on PPD and Anxiety, Shaken Baby, Safe Sleeping, Counseling resources, and [facility] resources. MOB and FOB able to respond appropriately to Shaken Baby and Safe Sleeping prompts. ASSESSMENT: Met with MOB, MOB?s mother, and in SCN. FOB present via video chat on phone. This social human services assistants introduced self and social human services assistants role. MOB agreeable to speak with this social human services assistants. MOB providing verbal permission for this social human services assistants to speak openly with MOB?s mother (Gilda) present and FOB present via video chat. This social human services assistants open with MOB that there could be some sensitive information asked during assessment. MOB voicing understanding and wanting Gilda and FOB to be apart of the conversation. MOB reports to have appropriate supports in the community. MOB presenting with a positive and engaged affect. This social human services assistants senses tension when broaching topic of THC usage between MOB and Gilda. MOB confirms for this social human services assistants to continue. MOB reports that Gilda is a positive support for MOB and ?needs to know what is going on.? Gilda responding appropriately and supportively. Gilda along with this social human services assistants encouraging MOB to establish with counseling services again. MOB reports plan to no longer use THC and abstain from smoking tobacco. MOB reports ?I have been doing well.? MOB reports understanding and agreeing with importance of counseling for MOB. MOB open to this social human services assistants providing MOB with list of counseling agencies/supports. MOB with verbal plan to set up counseling appointment once is discharged to the community. MOB holding infant throughout assessment. MOB with appropriate interaction with infant. MOB reports to have a connection with . FOB with appropriate affect and presenting as appropriate emotional regulation with limitations to be able to see infant currently. MOB voicing no needs and no further questions. Active support and listening provided. Safe Plan of Care for infant related to substance use: MOB plans to no longer use THC but if MOB would relapse plan is to not use around infant and to leave in the charge of a non-using adult. PLAN: Infant to discharge to home with MOB and FOB. Pending meconium. Will continue to follow and make referrals as indicated. Amie ABDALLA, [place]
[2019-12-21] MEDS: Acetaminophen 500 MG Tablet 1000 MG PO ×4 (00:48→20:04)
[2019-12-21 02:14] VITALS: BP 109/62; PULSE 84; RESP 16; TEMP 36.8
[2019-12-21] MEDS: Naproxen 250 MG Tablet 500 MG PO ×3 (05:38→22:00)
[2019-12-21] MEDS: oxyCODONE 5 MG Tablet PO ×3 (05:50→21:14)
[2019-12-21 06:05] VITALS: RESP 18; O2SAT 99
[2019-12-21 06:24] LABS: Absolute Neutrophil Count 9.5 X10^3/uL (2.0-7.7); Basophil# 0.05 X10^3/uL; Basophil% 0.4 % (0-1); Eosinophil# 0.11 X10^3/uL; Eosinophils% 0.8 % (0-5); Hematocrit 24.6 % (37-47); Hemoglobin 8.1 g/dL (12.0-15.0); Mean Corp Hgb Conc 32.9 g/dL (32-36); Mean Corpuscular Hgb 32.1 pg (27.0-32.0); Mean Corpuscular Volume 97.6 fL (81-99); Mean Platelet Vol. 11.4 fl (6.2-12.0); Monocyte# 0.79 X10^3/uL; Monocyte% 5.8 % (0-10); NRBC Flagged by Analyzer 0 % (0-5); Neutrophil # 9.53 X10^3/uL (2.7-7.7); Neutrophil % 70.4 % (47-70); Platelet Count 227 K/mm3 (150-450); RBC Distribution Width CV 13.3 % (11.6-14.6); RBC Distribution Width SD 47.1 fl (35.1-43.9); Red Blood Count 2.52 M/mm3 (4.2-5.4); White Blood Count 13.5 K/mm3 (4.4-11.0)
--- NOTE | 2019-12-21 07:32 | PCM.PN.OB ---
Patient Problems: Active and Suspected Problems (Last Reviewed 12/15/19 @ 09:23 by Jeannine Will) PROM (premature rupture of membranes) (Acute) Subjective: patient recovering well, denies CP, SOB, N, or V. patient is ambulating, voiding ,tolerating adequate po, and pain is controlled with oral medications. - Physical Exam Vitals/I&O's: Vital Signs Temp Pulse Resp BP Pulse Ox 98.3 F 84 18 109/62 99 12/21/19 02:14 12/21/19 02:14 12/21/19 06:05 12/21/19 02:14 12/21/19 06:05 Oxygen Delivery Method Room Air Weight: 154 lb 2 oz Body Mass Index (BMI) 24.1 Intake and Output for Last 24 Hours 12/19/19 12/20/19 12/21/19 23:59 23:59 23:59 Intake Total 5160.63 / 5160.63 818.33 / 818.33 Output Total 3550 / 3550 850 / 850 Balance 1610.63 / 1610.63 -31.67 / -31.67 General: Alert, Oriented x3 Laboratory Results 12/21/19 05:45: WBC 13.5 H, RBC 2.52 L, Hgb 8.1 L, Hct 24.6 L, MCV 97.6, MCH 32.1 H, MCHC 32.9 D, RDW Std Deviation 47.1 H, RDW Coeff of Christine 13.3, Plt Count 227, MPV 11.4, Immature Gran % (Auto) 2.600 H, Neut % (Auto) 70.4 H, Lymph % (Auto) 20.0, [place] % (Auto) 5.8, Eos % (Auto) 0.8, Baso % (Auto) 0.4, Absolute Neuts (auto) 9.5 H, Absolute Lymphs (auto) 2.70, Nucleated RBC % 0 Current Medications Acetaminophen (Tylenol) 1,000 mg PO Q6 [facility] Last Admin: 12/21/19 07:02 Dose: 1,000 mg Documented by: Bisacodyl (Dulcolax) 10 mg RECTAL UD PRN PRN Reason: If no BM Hydrocortisone (Hytone) 1 applic TOPICAL TID PRN PRN; Protocol PRN Reason: Discomfort Methylergonovine Maleate (Methergine) 0.2 mg IM X1 PRN PRN Reason: Uterine Atony Naproxen (Naprosyn) 500 mg PO Q8 [facility] Last Admin: 12/21/19 05:38 Dose: 500 mg Documented by: Ondansetron HCl (Zofran) 4 mg IV Q4H PRN PRN PRN Reason: Nausea Oxycodone HCl (Oxyir) 5 - 10 mg PO Q4H PRN PRN PRN Reason: Pain Score 4-10 Last Admin: 12/21/19 05:50 Dose: 10 mg Documented by: Prochlorperazine Edisylate (Compazine Iv) 10 mg IV Q6H PRN PRN PRN Reason: NAUSEA Senna/Docusate Sodium (Senokot-S, Surekha-Colace) 0 tablet PO DAILY [facility] Last Admin: 12/20/19 11:03 Dose: 1 tablet Documented by: Simethicone (Mylicon) 80 mg PO PCHS PRN PRN Reason: Indigestion/stomach pain Last Admin: 12/21/19 05:57 Dose: 80 mg Documented by: Sodium Chloride () 5 - 15 ml IV UD PRN PRN Reason: SALINE FLUSH Last Admin: 12/20/19 03:56 Dose: 10 ml Documented by: Medical Necessity - Tobacco Use Smoking Status: Former smoker Assessment/Plan All Active Problems (Last Reviewed 12/15/19 @ 09:23 by Jeannine Will) PROM (premature rupture of membranes) (Acute) Uterine size date discrepancy (Acute) Influenza vaccination declined (Acute) Iron (Fe) deficiency anemia (Acute) Supervision of high-risk (Acute) Marijuana use (Acute) Anxiety and depression (Acute) (Acute) s/p LTCS PPD # 2 1. routine post care 2. breast feeding- support given 3. rh positive 4. rubella immune
[2019-12-21 08:00] VITALS: BP 99/62; PULSE 74; RESP 16; TEMP 36.6; O2SAT 97
[2019-12-21] MEDS: Senna/Docusate Sodium 1 Tablet PO (10:45)
[2019-12-21 13:55] VITALS: BP 110/70; PULSE 85; RESP 16; TEMP 36.3; O2SAT 98
--- NOTE | 2019-12-21 16:24 | CASEMGMT ---
Social Work This social sciences department chair checking in with MOB in SCN. Solitario COLES present. This social sciences department chair inquiring if Solitario has been cleared for COVID-19. Solitario reports to have been notified by testing sight that there was a mistake and Solitario was not positive for COVID-19. Solitario reports to be frustrated that Solitario missed delivery of due to error. This social sciences department chair normalizing emotions. Solitario presenting as pleasant and engaged with MOB and . Active listening and support provided. MOB reports to be doing well. MOB currently infant. Meconium continues to be pending for infant. Social work to continue to follow as needed. Amie Vizcarra CERTIFIED RESIDENTIAL MEDICATION AIDE, MALATHIS
[2019-12-21 21:06] VITALS: BP 98/58; PULSE 81; RESP 14; TEMP 36.6
[2019-12-22 01:45] VITALS: BP 110/51; PULSE 75; RESP 14; TEMP 36.4
[2019-12-22] MEDS: Acetaminophen 500 MG Tablet 1000 MG PO ×2 (01:45→09:09)
[2019-12-22] MEDS: Naproxen 250 MG Tablet 500 MG PO (06:06)
[2019-12-22 07:44] VITALS: BP 104/66; PULSE 78; RESP 16; TEMP 36.5; O2SAT 99
--- NOTE | 2019-12-22 07:59 | PN.OBGYN_ITS ---
Patient Problems: Active and Suspected Problems (Last Reviewed 12/15/19 @ 09:23 by Jeannine Will) PROM (premature rupture of membranes) (Acute) Subjective: Patient doing well without complaints. Tolerating PO. Ambulating and voiding without difficulty. Breast feeding well. Denies chest pain, shortness of breath, calf pain/swelling, fevers, chills, lightheadedness.Baby in SPC but discharge planned today - Physical Exam Vitals/I&O's: Vital Signs Temp Pulse Resp BP Pulse Ox 97.7 F L 78 16 104/66 99 12/22/19 07:44 12/22/19 07:44 12/22/19 07:44 12/22/19 07:44 12/22/19 07:44 Oxygen Delivery Method Room Air Weight: 154 lb 2 oz Body Mass Index (BMI) 24.1 Intake and Output for Last 24 Hours 12/20/19 12/21/19 12/22/19 23:59 23:59 23:59 Intake Total 818.33 / 818.33 Output Total 850 / 850 Balance -31.67 / -31.67 General: Alert, Oriented x3 Abdomen: Soft, Non-Distended - FF below U. Dressing dry and intact Current Medications Acetaminophen (Acetaminophen 500 Mg Tablet) 1,000 mg PO Q6H [facility] Last Admin: 12/22/19 01:45 Dose: 1,000 mg Documented by: Bisacodyl (Dulcolax) 10 mg RECTAL UD PRN PRN Reason: If no BM Hydrocortisone (Hytone) 1 applic TOPICAL TID PRN PRN; Protocol PRN Reason: Discomfort Methylergonovine Maleate (Methergine) 0.2 mg IM X1 PRN PRN Reason: Uterine Atony Naproxen (Naprosyn) 500 mg PO Q8 [facility] Last Admin: 12/22/19 06:06 Dose: 500 mg Documented by: Ondansetron HCl (Zofran) 4 mg IV Q4H PRN PRN PRN Reason: Nausea Oxycodone HCl (Oxyir) 5 - 10 mg PO Q4H PRN PRN PRN Reason: Pain Score 4-10 Last Admin: 12/21/19 21:14 Dose: 5 mg Documented by: Prochlorperazine Edisylate (Compazine Iv) 10 mg IV Q6H PRN PRN PRN Reason: NAUSEA Senna/Docusate Sodium (Senokot-S, Surekha-Colace) 0 tablet PO DAILY [facility] Last Admin: 12/21/19 10:45 Dose: 2 tablet Documented by: Simethicone (Mylicon) 80 mg PO PCHS PRN PRN Reason: Indigestion/stomach pain Last Admin: 12/22/19 01:51 Dose: 80 mg Documented by: Sodium Chloride () 5 - 15 ml IV UD PRN PRN Reason: SALINE FLUSH Last Admin: 12/20/19 03:56 Dose: 10 ml Documented by: Medical Necessity - Tobacco Use Smoking Status: Former smoker Assessment/Plan All Active Problems (Last Reviewed 12/15/19 @ 09:23 by Jeannine Will) PROM (premature rupture of membranes) (Acute) Uterine size date discrepancy (Acute) Influenza vaccination declined (Acute) Iron (Fe) deficiency anemia (Acute) Supervision of high-risk (Acute) Marijuana use (Acute) Anxiety and depression (Acute) (Acute) s/p LTCS PPD # 3 1. routine post care 2. breast feeding- support given 3. rh positive 4. rubella immune 5. home today
--- NOTE | 2019-12-22 08:03 | PCM.DC.SUM ---
Discharge Date and Diagnosis - Problem List Patient Problems: Active and Suspected Problems (Last Reviewed 12/15/19 @ 09:23 by Jeannine Will) PROM (premature rupture of membranes) (Acute) Date of Admission: 12/18/19 - Primary Discharge Diagnosis Acute Problems: Active Problems (Last Reviewed 12/15/19 @ 09:23 by Jeannine Will) PROM (premature rupture of membranes) (Acute) Hospital Course and Treatment Consultations 12/18/19 23:57 Consult: Anesthesia Routine Comment: Reason For Exam: Labor 12/19/19 00:06 Consult: Mental Health/Crisis Routine Reason for consult?: +thc Date Notified:: 12/19/19 Time Notified:: 08:00 Procedures: - - LTCS Summary of Care Provided: The patient is a 34 year old F primary LTCS for FTP. Routine post c section course. Reg diet, routine care. Discharge with normal postop restrictions Patient Problems: Active and Suspected Problems (Last Reviewed 12/15/19 @ 09:23 by Jeannine Will) PROM (premature rupture of membranes) (Acute) - Physical Exam Vitals/I&O's: Vital Signs Temp Pulse Resp BP Pulse Ox 97.7 F L 78 16 104/66 99 12/22/19 07:44 12/22/19 07:44 12/22/19 07:44 12/22/19 07:44 12/22/19 07:44 Oxygen Delivery Method Room Air Weight: 154 lb 2 oz Body Mass Index (BMI) 24.1 Intake and Output for Last 24 Hours 12/20/19 12/21/19 12/22/19 23:59 23:59 23:59 Intake Total 818.33 / 818.33 Output Total 850 / 850 Balance -31.67 / -31.67 Current Medications Acetaminophen (Acetaminophen 500 Mg Tablet) 1,000 mg PO Q6H [facility] Last Admin: 12/22/19 01:45 Dose: 1,000 mg Documented by: Bisacodyl (Dulcolax) 10 mg RECTAL UD PRN PRN Reason: If no BM Hydrocortisone (Hytone) 1 applic TOPICAL TID PRN PRN; Protocol PRN Reason: Discomfort Methylergonovine Maleate (Methergine) 0.2 mg IM X1 PRN PRN Reason: Uterine Atony Naproxen (Naprosyn) 500 mg PO Q8 [facility] Last Admin: 12/22/19 06:06 Dose: 500 mg Documented by: Ondansetron HCl (Zofran) 4 mg IV Q4H PRN PRN PRN Reason: Nausea Oxycodone HCl (Oxyir) 5 - 10 mg PO Q4H PRN PRN PRN Reason: Pain Score 4-10 Last Admin: 12/21/19 21:14 Dose: 5 mg Documented by: Prochlorperazine Edisylate (Compazine Iv) 10 mg IV Q6H PRN PRN PRN Reason: NAUSEA Senna/Docusate Sodium (Senokot-S, Surekha-Colace) 0 tablet PO DAILY [facility] Last Admin: 12/21/19 10:45 Dose: 2 tablet Documented by: Simethicone (Mylicon) 80 mg PO HS PRN PRN Reason: Indigestion/stomach pain Last Admin: 12/22/19 01:51 Dose: 80 mg Documented by: Sodium Chloride () 5 - 15 ml IV UD PRN PRN Reason: SALINE FLUSH Last Admin: 12/20/19 03:56 Dose: 10 ml Documented by: Home Medications: Medications to take at Discharge vitamin#30 30 mg iron-10 mg iron-folic acid 1 mg-omg3 capsule 1 cap PO DAILY 06/16/19 Naproxen [Naprosyn] 500 mg PO BID PRN PRN #60 tab 12/22/19 Oxycodone HCl/Acetaminophen [Percocet 5/325] 1 - 2 tab PO Q4H PRN PRN 3 Days #15 tab 12/22/19 Following Prescriptions Were Given to Patient: Naproxen [Naprosyn] 500 mg PO BID PRN PRN #60 tab PRN Reason: Pain Transmission Status: Received by [facility] Oxycodone HCl/Acetaminophen [Percocet 5/325] 1 - 2 tab PO Q4H PRN PRN 3 Days #15 tab PRN Reason: Pain Transmission Status: Received by [facility] Primary Care Physician: Care Physician,No Primary [Primary Care Provider] - Medical Necessity - Tobacco Use Smoking Status: Former smoker Meaningful Use Info Meaningful Use Diagnoses (Choose all that apply): None applicable
[2019-12-22 08:05] VITALS: BP 113/65; PULSE 112; RESP 16; TEMP 36.7; O2SAT 99
--- NOTE | 2019-12-22 08:05 | DCINST_ITS ---
Additional Instructions: If you experience any of the following, contact your healthcare provider. * Bleeding that soaks a pad every hour for 2 hours * Fever 100.4 or higher * Unrelieved incision or abdominal pain * Swelling, redness, discharge or bleeding from your incision or episiotomy site * Your incision begins to separate * Problems urinating (including inability to urinate or burning while urinating). * Visual changes * Severe headache * Flu-like symptoms * Pain or redness in one of both of your breasts * Pain, warmth, tenderness or swelling in your legs, especially the calf area * Frequent nausea and vomiting * Symptoms of depression or anxiety If you experience any of the following, call 911 or go to the nearest Emergency Room. * Chest pain * Problems breathing * Seizure activity * Partial or complete paralysis of a body part, slurred speech, weakness or drooping of the face, or a sudden inability to walk or hold your balance Allergies/Adverse Reactions: Allergies Sulfa (Sulfonamide Antibiotics) Allergy (Mild, Verified 12/18/19 23:30) other as a child Medications to take at Discharge vitamin#30 30 mg iron-10 mg iron-folic acid 1 mg-omg3 capsule 1 cap PO DAILY 06/16/19 Naproxen [Naprosyn] 500 mg PO BID PRN PRN #60 tab 12/22/19 Oxycodone HCl/Acetaminophen [Percocet 5/325] 1 - 2 tab PO Q4H PRN PRN 3 Days #15 tab 12/22/19 The following prescriptions were given: Naproxen [Naprosyn] 500 mg PO BID PRN PRN #60 tab PRN Reason: Pain Transmission Status: Received by [facility] Oxycodone HCl/Acetaminophen [Percocet 5/325] 1 - 2 tab PO Q4H PRN PRN 3 Days #15 tab PRN Reason: Pain Transmission Status: Received by [facility] Follow-Up: Call to make an appointment with your doctor for an incision check in 1-2 weeks. You will also need a 6 week post- follow up appointment. Test results from this visit will be discussed in further detail at your follow- up appointment, if applicable. Primary Care Physician: Care Physician,No Primary [Primary Care Provider] -
--- NOTE | 2019-12-22 08:05 | PCM.DCCSEC ---
Additional Instructions: If you experience any of the following, contact your healthcare provider. Bleeding that soaks a pad every hour for 2 hours Fever 100.4 or higher Unrelieved incision or abdominal pain Swelling, redness, discharge or bleeding from your incision or episiotomy site Your incision begins to separate Problems urinating (including inability to urinate or burning while urinating). Visual changes Severe headache Flu-like symptoms Pain or redness in one of both of your breasts Pain, warmth, tenderness or swelling in your legs, especially the calf area Frequent nausea and vomiting Symptoms of depression or anxiety If you experience any of the following, call 911 or go to the nearest Emergency Room. Chest pain Problems breathing Seizure activity Partial or complete paralysis of a body part, slurred speech, weakness or drooping of the face, or a sudden inability to walk or hold your balance Allergies/Adverse Reactions: Allergies Sulfa (Sulfonamide Antibiotics) Allergy (Mild, Verified 12/18/19 23:30) other as a child Medications to take at Discharge vitamin#30 30 mg iron-10 mg iron-folic acid 1 mg-omg3 capsule 1 cap PO DAILY 06/16/19 Naproxen [Naprosyn] 500 mg PO BID PRN PRN #60 tab 12/22/19 Oxycodone HCl/Acetaminophen [Percocet 5/325] 1 - 2 tab PO Q4H PRN PRN 3 Days #15 tab 12/22/19 The following prescriptions were given: Naproxen [Naprosyn] 500 mg PO BID PRN PRN #60 tab PRN Reason: Pain Transmission Status: Received by [facility] Oxycodone HCl/Acetaminophen [Percocet 5/325] 1 - 2 tab PO Q4H PRN PRN 3 Days #15 tab PRN Reason: Pain Transmission Status: Received by [facility] Follow-Up: Call to make an appointment with your doctor for an incision check in 1-2 weeks. You will also need a 6 week post- follow up appointment. Test results from this visit will be discussed in further detail at your follow-up appointment, if applicable. Primary Care Physician: Care Physician,No Primary [Primary Care Provider] -
--- NOTE | 2019-12-22 13:09 | NURSING ---
late entry: on 12/19/19 at 1845 epidural catheter removed, blue tip intact.
[2019-12-22 13:30] VITALS: BP 113/65; PULSE 112; RESP 16; TEMP 36.7; O2SAT 99
== END 2019-12-22 13:57 | disposition home or self-care (01) | DRG 788 ==
LOC: WPOUT 23:34 → WP 12-19 15:59
PROVIDERS: Admitting Provider Obstetrics & Gynecology; Visit Provider Obstetrics & Gynecology
DX: O42.02 Full-term premature rupture of membranes, onset of labor within 24 hours of rupture (principal); O99.02 Anemia complicating childbirth; O76 Abnormality in fetal heart rate and rhythm complicating labor and delivery; Z3A.37 37 weeks gestation of pregnancy; Z37.0 Single live birth
CPT/HCPCS: 59025; 59050; 80307; 84112; 85025; 85027; 86850; 86900; 86901; 87635; 88307; 99218; J7030; J7120; A4216; G0378; J2405; U0003

== ENCOUNTER 2023-03-27 10:18 | Day surgery (SDC) | payer OTHER, SELFPAY ==
[2023-03-27] VITALS (7 sets, daily range): BP systolic 94–109; BP diastolic 60–74; PULSE 70–84; RESP 16; TEMP 36.1–36.8; O2SAT 96–100; BMI 21.7
--- NOTE | 2023-03-27 | POC_PTH ---
PATHOLOGY RESULTS PATIENT: RAMÍREZ SKY LOC: [facility] – [place] U#:[id number] AGE/SX: 37/F ROOM: RE03/27/[address]: Dr. Juana Duncan MD : [id number] BED: DIS: 03/27/2023 SPEC #: [id number] RECD: 03/27/23 14:01 STATUS: SUMAN WENDI #: [id number] GLORIA: 03/27/23 00:[address]: Juana Duncan DEPT: SURGICAL PATHOLOGY RECD BY: Sharita Rocha ENTERED: 03/30/23 09:38 SP TYPE: PROD CONC OTHR DR: No Primary Care Phys Tissues: Product of conception, NOS Procedures: Surgery Specimen Level IV HEADER OPERATION: Suction dilation and curettage PRE-OP DIAGNOSIS: Incomplete TISSUE SUBMITTED: Products of conception MICROSCOPIC DIAGNOSIS Endometrium, curettage: Chorionic villi, decidualized stroma and trophoblastic cells (products of conception). AM:rose 03/31/2023 MICROSCOPIC DESCRIPTION Slides are reviewed. GROSS DESCRIPTION Received in fixative is one container labeled with the patient's name and designated products of conception. The specimen consists of multiple fragments of hemorrhagic soft tissue that in aggregate measure 8.0 x 7.0 x 2.5 cm. tissue is not identified. Log Rafter tissue is submitted in three cassettes. / SJ:rose 03/30/2023 TC:5 CPT: [id number]
--- OUTSIDE RECORDS SUMMARY | 2023-03-27 10:26 | XMS RPT_ITS | CCD ---
Author Name Unknown Address [address] [place], [place] [id number] Organization [facility] Care Team Providers Care Installation Specialist Name Role Phone Jesus Tony Unavailable Unavailable Jesus Tony Unavailable Unavailable Problems Active Problems Problem Classification Problem Date Documented Da te Episodic/Chronic Unclassified (1 source) Unknown / UNK(Unknown) Onset: 02-27-2017 Past or Other Problems Problem Classification Problem Date Documented Da te Episodic/Chronic Unclassified (1 source) SCREENING Onset: 02-27-2017 Results Test Name Value Interpretation Reference Range Facil ity Encounters Encounter Date Encounter Type Care Provider Facility Start: 02-27-2017 Ambulatory Jesus Tony Facility:[facility] Summary Purpose Family History No Family History Records Found Advance Directives No Advanced Directives Records Found Additional Source Comments INFORMATION SOURCE (unrecogn ized section and content) FOR RECORDS PERTAINING TO PATIENTS WHO ARE OR HAVE BEEN ENROLLED IN A CHEMICAL DEPENDENCY/SUBSTANCEABUSE PROGRAM, SOME INFORMATION MAY BE OMITTED. This clinical summary was aggregated from multiple sources. Caution should be exercised in using it in the provision of clinical care. This summary normalizes information from multiple sources, and as a consequence, information in this document may materially change the coding, format and clinical context of patient data. In addition, data may be omitted in some cases. CLINICAL DECISIONS SHOULD BE BASED ON THE PRIMARY CLINICAL RECORDS. [email or web address] provides no warranty or guarantee of the accuracy or completeness of information in this document.
[2023-03-27] MEDS: Lactated Ringers 1,000 ML 15 ML IV (11:10)
[2023-03-27] MEDS: Doxycycline 100 MG CAPSULE PO (11:10)
[2023-03-27 11:33] LABS: Absolute Lymphocyte Count 2.32 X10^3/uL (0.83-4.51); Absolute Neutrophil Count 6.9 X10^3/uL (2.0-7.7); Basophil# 0.06 X10^3/uL; Basophil% 0.6 % (0-1); Hematocrit 35.4 % (37-47); Hemoglobin 11.9 g/dL (12.0-15.0); Lymphocyte # 2.32 X10^3/ul (0.83-4.51); Lymphocyte % 22.9 % (19-41); Mean Corp Hgb Conc 33.6 g/dL (32-36); Mean Corpuscular Volume 92.2 fL (81-99); Mean Platelet Vol. 10.7 fl (6.2-12.0); Monocyte% 4.9 % (0-10); NRBC Flagged by Analyzer 0 % (0-5); Neutrophil # 6.86 X10^3/uL (2.7-7.7); Neutrophil % 67.5 % (47-70); Platelet Count 298 K/mm3 (150-450); RBC Distribution Width CV 12.8 % (11.6-14.6); RBC Distribution Width SD 43.1 fl (35.1-43.9); Red Blood Count 3.84 M/mm3 (4.2-5.4); White Blood Count 10.2 K/mm3 (4.4-11.0)
--- NOTE | 2023-03-27 11:36 | HP.PCM_ITS ---
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 Is patient in pain?: Yes Pain scale (1-10): 3 Allergies Sulfa (Sulfonamide Antibiotics) Allergy (Mild, Verified 03/27/23 09:43) other Medications cholecalciferol (vitamin D3) 50 mcg (2,000 unit) capsule 50 mcg PO DAILY 03/17/23 [History Confirmed 03/27/23] magnesium glycinate 100 mg tablet 100 mg PO DAILY 03/17/23 [History Confirmed 03/27/23] multivitamin no.47-iron fum 27 mg-folate no.1 1 mg-dha 300 mg capsule (PNV-DHA) cap PO 03/17/23 [History Confirmed 03/27/23] Is last menstrual period known: Yes Post menopausal: No Patient : No : No PFSH Medical History Anxiety and depression Family planning, IUD (intrauterine device) check/reinsertion/removal Grand mal seizure Seasonal allergies Family History BrotherDiabetesGrandmother DiabetesMother Hypertension Social History adopted: No household members: spouse and children number of children: 1 current occupational status: unemployed current occupation: [employer] current occupational exposures/hazards: No pets and animals: Yes (not managing litterbox) pets and animals: cat(s) history of recent travel: No sexually active: Yes Smoking Status: Former smoker Tobacco: How many years used: 5 alcohol intake: never substance use type: does not use well-balanced diet: daily or most days caffeine: Yes Type: coffee Number of servings: 2 eating out: rarely or never during the past year weight has: remained stable what type of physical activity do you participate in: none jillian/congregational: Non-Orthodoxy/Independent seatbelt use: always do you feel safe at home: Yes 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 patient is tearful and painful, tender on exam vaginally. History 2 Elective abortions Hx Para 1 Spontaneous abortions 1 Hx # Term Pregnancies Ectopic pregnancies Hx # Pregnancies Multiple births # of living children 1 Past Pregnancies Del. Date Name GA/Weeks Outcome Route Bth Weight [facility] Jessie 37 live - full term 4lb 9oz Female ? epidural [facility] ? Delivery Date: 12/19/19 Last Updated by: Stephani Uribe NRFHT SGA PROM ROS Const Constitutional: Reports as per HPI; Denies fever(s) ENT ENT: Reports system reviewed and no additional complaints, except as documented Cardio Card: Reports system reviewed and no additional complaints, except as documented Resp Resp: Reports system reviewed and no additional complaints, except as documented GI GI: Reports as per HPI : Reports as per HPI Musc Musc: Reports system reviewed and no additional complaints, except as documented Skin Skin/Breast: Reports system reviewed and no additional complaints, except as documented Neuro Neuro: Reports system reviewed and no additional complaints, except as documented Endo Endo: Reports system reviewed and no additional complaints, except as documented Exam Const General: healthy appearing, comfortable and no acute distress HENMT Head: normal to inspection and normocephalic Neck Neck: no lymphadenopathy noted Thyroid: thyroid normal Chest Chest palpation & inspection: normal inspection of the chest Resp Effort & Inspection: normal respiratory effort Cardio Rate: regular rate Rhythm: regular rhythm GI Inspection: normal to inspection Palpation: soft and tender External Female Exam: normal external appearance Speculum Exam - Vagina: normal appearance of the vagina and vaginal bleeding Bimanual Exam- Vagina & Uterus: uterine shape normal and tender OB/External & Speculum: vaginal bleeding Speculum Exam: vaginal bleeding Skin General: no rashes or lesions noted Neuro General: no focal motor deficits Extrem General: normal to inspection and no pedal edema Psych Appearance: grossly normal Coding Level of Care Code Off vis,est,level 4 Diagnoses Incomplete O03.4 Assessment and Plan Assessment and Plan (1) Incomplete : Status: Acute Comment: CRL 7w6d no FHT GS collapsing 2.7cm. plan suction d and c for retained products. Plan After discussing the patient's diagnosis and treatment plan options, patient wishes to proceed with surgical management. I have discussed with the patient the risks, benefits, and alternatives of the procedure which include but are not limited to risks of anesthesia, bleeding, infection, possible damage to bowel, bladder, or surrounding vasculature which could lead to additional surgery to evaluate any complications. Patient agrees to procedure and wishes to proceed. ACOG/uptodate references given for additional information regarding procedure. UPDATE- I have seen the patient and performed any clinically relevant updates to the history and physical exam. Juana Duncan MD
--- NOTE | 2023-03-27 11:39 | OP.PCM_ITS ---
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 She was prepped and draped in the normal sterile fashion the dorsal lithotomy position. Bladder was drained of clear urine and anterior lip of the cervix was grasped and the uterus sounded to 9cm. Cervix was progressively dilated to allow passage of a 9mm suction curette. Progressive passes were made removing the retained products of conception without complication. Sharp curettage confirmed complete removal of the retained products. All instruments were removed from the vagina and excellent hemostasis was noted and the patient was taken to recovery in stable condition. Grafts/Implants Used: none Complications none Admit VTE Documentation VTE Present on Admission: No VTE Mechan Device Prophylaxis: SCD's Procedures Urinary/Genital [id number]: 07367 Trmt of incomplete Ab, any TM
--- NOTE | 2023-03-27 11:39 | DCINST_ITS ---
Discharge Instructions Diet Discharge Diet: No restrictions Activity Discharge Activity: Return to Normal Activity, May Shower and May Take a Tub Bath (after 1 week) May resume sexual activity in: 1-2 weeks Weight Bearing Status: Weight bearing as tolerated Lifting Restrictions: none Dressing / Incision Call your doctor if you observe: Fever of 101 or Higher, Using more than 1 pad per hour, Shortness of breath and Uncontrolled pain Follow Up Care Please Follow Up With: Juana Duncan MD When: Call [phone] to schedule appointment. Test Results: Test results from this visit will be discussed in further detail at your follow- up appointment, if applicable. Discharge Plan Admission Attending Provider: Juana Duncan Primary Care Provider: Care Physician,Litzy Primary Discharge Orders/Prescriptions Prescriptions: No Action cholecalciferol (vitamin D3) 50 mcg (2,000 unit) capsule 50 mcg PO DAILY magnesium glycinate 100 mg tablet 100 mg PO DAILY PNV-DHA 27 mg iron-1 mg -300 mg capsule 1 cap PO DAILY ferrous sulfate [iron] 325 mg (65 mg iron) tablet 325 mg PO DAILY Referrals / Follow Up: Care Physician,No Primary [Primary Care Provider] - Disposition Disposition (needs filled in before D/C Order can be placed): Home, Self Care
[2023-03-27] MEDS: Lidocaine 1% (30 ml sdv) 30 ML Vial (12:00)
[2023-03-27] MEDS: miSOPROStol 200 MCG Tablet (12:05)
== END 2023-03-27 14:17 | disposition home or self-care (01) ==
LOC: SDC 10:21 → AC 10:24
PROVIDERS: Referring Provider Obstetrics & Gynecology; Visit Provider Obstetrics & Gynecology
PROC: (CPT 59812; principal; 2023-03-27 10:45)
DX: O03.4 Incomplete spontaneous abortion without complication (principal); Z87.891 Personal history of nicotine dependence
CPT/HCPCS: 59812; 01965; 85025; 86850; 86900; 86901; 88305; J7120; J2405

== ENCOUNTER → 2023-10-12 | Outpatient (CLI) | payer OTHER, SELFPAY ==
[2023-10-12 16:15] LABS: Absolute Lymphocyte Count 1.74 X10^3/uL (0.83-4.51); Basophil# 0.03 X10^3/uL; Basophil% 0.4 % (0-1); Eosinophil# 0.12 X10^3/uL; Eosinophils% 1.4 % (0-5); Hematocrit 37.3 % (37-47); Hemoglobin 12.7 g/dL (12.0-15.0); Lymphocyte # 1.74 X10^3/ul (0.83-4.51); Lymphocyte % 20.6 % (19-41); Mean Corpuscular Hgb 29.7 pg (27.0-32.0); Mean Corpuscular Volume 87.1 fL (81-99); Mean Platelet Vol. 10.2 fl (6.2-12.0); Monocyte# 0.52 X10^3/uL; Monocyte% 6.1 % (0-10); NRBC Flagged by Analyzer 0 % (0-5); Neutrophil % 70.9 % (47-70); Platelet Count 307 K/mm3 (150-450); RBC Distribution Width CV 12.1 % (11.6-14.6); RBC Distribution Width SD 38.8 fl (35.1-43.9); Red Blood Count 4.28 M/mm3 (4.2-5.4); White Blood Count 8.5 K/mm3 (4.4-11.0)
[2023-10-12 17:36] LABS: HIV - WCH Non-Reactive (Nonreactive); Hepatitis B Surface Antigen Non-Reactive (Nonreactive); Hepatitis C Antibody Non-Reactive (Nonreactive); Rubella IgG Reactive (Nonreactive); Syphilis Antibodies Non-reactive
[2023-10-15 06:09] LABS: Chlamydia By Nucleic Acid AMP Negative (Negative); Gonococcus By Nucleic Acid AMP Negative (Negative)
== END | disposition home or self-care (01) ==
PROVIDERS: Referring Provider Obstetrics & Gynecology; Visit Provider Obstetrics & Gynecology
DX: O09.90 Supervision of high risk pregnancy, unspecified, unspecified trimester (principal); Z3A.00 Weeks of gestation of pregnancy not specified
CPT/HCPCS: 36415; 85025; 86703; 86762; 86780; 86803; 86850; 86900; 86901; 87086; 87088; 87340; 87491; 87591

== ENCOUNTER → 2024-02-02 | Outpatient (CLI) | payer OTHER, SELFPAY ==
[2024-02-02 11:52] LABS: Absolute Lymphocyte Count 1.41 X10^3/uL (0.83-4.51); Absolute Neutrophil Count 6.2 X10^3/uL (2.0-7.7); Basophil# 0.06 X10^3/uL; Basophil% 0.7 % (0-1); Eosinophil# 0.18 X10^3/uL; Eosinophils% 2.1 % (0-5); Hemoglobin 11.8 g/dL (12.0-15.0); Lymphocyte # 1.41 X10^3/ul (0.83-4.51); Lymphocyte % 16.2 % (19-41); Mean Corp Hgb Conc 34.7 g/dL (32-36); Mean Corpuscular Hgb 31.5 pg (27.0-32.0); Mean Corpuscular Volume 90.7 fL (81-99); Mean Platelet Vol. 11.1 fl (6.2-12.0); Monocyte# 0.59 X10^3/uL; Monocyte% 6.8 % (0-10); NRBC Flagged by Analyzer 0 % (0-5); Neutrophil # 6.24 X10^3/uL (2.7-7.7); Neutrophil % 71.9 % (47-70); Platelet Count 289 K/mm3 (150-450); RBC Distribution Width CV 12.9 % (11.6-14.6); RBC Distribution Width SD 42.1 fl (35.1-43.9); Red Blood Count 3.75 M/mm3 (4.2-5.4); White Blood Count 8.7 K/mm3 (4.4-11.0)
[2024-02-02 11:58] LABS: Glucose Challenge Gest 1H 50g 79 mg/dL (70-140)
[2024-02-02 12:29] LABS: HIV - WCH Non-Reactive (Nonreactive); Syphilis Antibodies Non-reactive
== END | disposition home or self-care (01) ==
LOC: BWCLAB 10:54
PROVIDERS: Referring Provider Nurse Practitioner Women's Health; Visit Provider Nurse Practitioner Women's Health
DX: Z13.1 Encounter for screening for diabetes mellitus (principal); Z3A.22 22 weeks gestation of pregnancy
CPT/HCPCS: 36415; 82950; 85025; 86703; 86780

== ENCOUNTER → 2024-03-03 | Outpatient (CLI) | payer OTHER, SELFPAY ==
--- NOTE | 2024-03-03 12:16 | US_ITS ---
STUDY: SECOND AND THIRD TRIMESTER OBSTETRICAL ULTRASOUND REASON FOR EXAM: Female, 38 years old size less than dates LMP: 07/27/2023 TECHNIQUE: Transabdominal TECHNICAL QUALITY: Adequate. PRIOR ULTRASOUND: None. FINDINGS: There is a single intrauterine fetus. The fetus is in a cephalic presentation. There is demonstrated cardiac activity with a heart rate of 141 bpm. There is a normal amniotic fluid volume. The largest amniotic fluid pocket measures 3.8 cm. The amniotic fluid index (MARYJO) is 8.9 cm. The placenta is anterior in location and is not low lying. There are Grade 1 placental changes. The cervix measures in length. The bilateral adnexal regions are normal. BIOMETRY: BPD: 7.5 cm: 30 weeks, 0 days HC: 27.9 cm: 30 weeks, 4 days AC: 26.7 cm: 30 weeks, 5 days FL: 5.8 cm: 30 weeks, 3 days CI: 75.84 FL/BPD: 77.86 FL/HC: 20.83 FL/AC: 21.81 HC/AC: 1.05 age by current US: 30 weeks, 2 days. BETY by current US: 05/10/2024. Estimated weight: 1607 grams, +/- 241 grams, 39 %. age by prior US: weeks, days. BETY by prior US: . Age by LMP: 30 weeks, 4 days. BETY by LMP: 05/08/2024. US/OB Limited With Biometrics IMPRESSION: Living intrauterine of 30 weeks 2 days as described above. Electronically Signed: Guillermo Carlisle MD at 18:14 EST ,
== END | disposition home or self-care (01) ==
LOC: US 12:14
PROVIDERS: Referring Provider Advanced Practice Midwife; Visit Provider Advanced Practice Midwife
DX: O26.843 Uterine size-date discrepancy, third trimester (principal); Z3A.30 30 weeks gestation of pregnancy
CPT/HCPCS: 76816

== ENCOUNTER → 2024-04-12 | Outpatient (CLI) | payer OTHER, SELFPAY ==
--- NOTE | 2024-04-12 15:25 | US_ITS ---
PROCEDURE: OB LIMITED WITH BIOMETRICS REASON FOR EXAM: SGA. COMPARISON: None. FINDINGS Number: 1 Position: Cephalic. Placental Position: Anterior. No evidence of previa. Placental Abnormalities: None. DIMENSIONS: Biparietal Diameter: 7.9 cm./31 weeks and 6 days. Head Circumference: 10.6 cm./33 weeks and 6 days. Abdominal Circumference: 30.2 cm./33 weeks and 4 days. Femur Length: 30.9 cm./34 weeks and 6 days. ESTIMATED WEIGHT: 2395 +/- 359 g. ESTIMATED WEIGHT PERCENTILE (24+ weeks): 10%. ESTIMATED GESTATIONAL AGE: Baseline: 36 weeks and 2 days. By Ultrasound: 33 weeks and 4 days. ESTIMATED DATE OF DELIVERY: Baseline: 05/08/2024. By Ultrasound: 05/27/2024. BIOPHYSICAL ASSESSMENT: Amniotic Fluid Volume: Subjectively normal. Amniotic Fluid Index: 7.2 cm. (8-24 cm normal range) Cardiac Motion: 140 beats per minute (average) Trunk and Limb Motion: Present. MATERNAL ANATOMY: Adnexa: Neither maternal ovary is successfully identified. Cervical Length (if measured): ANATOMY: Spine: Unremarkable. Cranium: Unremarkable. Cerebellum: Unremarkable. Cisterna Magna: Unremarkable. Cavum Septum Pellucidi: Present. Lateral Ventricles: Unremarkable. Choroid Plexus: Unremarkable. Midline Falx: Present. Nuchal Fold: Upper Lip: Grossly intact. Heart: Normal four-chamber view. Ventricular Outflow Tracts: Unremarkable. Stomach: Unremarkable. Kidneys: Unremarkable. Bladder: Midline. Umbilical Cord: Three vessel cord. Normal and placental insertions. Extremities: Unremarkable. US/OB Limited With Biometrics IMPRESSION: UNREMARKABLE ANATOMIC SURVEY. Reading Location: [id number]
== END | disposition home or self-care (01) ==
LOC: US 15:25
PROVIDERS: Visit Provider Obstetrics & Gynecology
DX: Z34.93 Encounter for supervision of normal pregnancy, unspecified, third trimester (principal); Z3A.35 35 weeks gestation of pregnancy
CPT/HCPCS: 76816

== ENCOUNTER → 2024-04-13 | Outpatient (CLI) | payer OTHER, SELFPAY | END | disposition home or self-care (01) | PROVIDERS: Referring Provider Obstetrics & Gynecology; Visit Provider Obstetrics & Gynecology | DX: O09.92 Supervision of high risk pregnancy, unspecified, second trimester (principal); Z3A.00 Weeks of gestation of pregnancy not specified | CPT/HCPCS: 87081 ==

== ENCOUNTER 2024-05-03 05:04 | Inpatient (IN) | payer OTHER, SELFPAY ==
[2024-05-03] VITALS (20 sets, daily range): BP systolic 98–115; BP diastolic 56–73; PULSE 63–82; RESP 13–18; TEMP 36.1–37; O2SAT 96–100; BMI 26.2
[2024-05-03] MEDS: Lactated Ringers 1,000 ML 999 ML IV (05:35)
[2024-05-03 06:01] LABS: Absolute Lymphocyte Count 2.57 X10^3/uL (0.83-4.51); Absolute Neutrophil Count 7.8 X10^3/uL (2.0-7.7); Basophil# 0.05 X10^3/uL; Basophil% 0.4 % (0-1); Eosinophil# 0.14 X10^3/uL; Eosinophils% 1.2 % (0-5); Hematocrit 35.5 % (37-47); Hemoglobin 12.1 g/dL (12.0-15.0); Lymphocyte # 2.57 X10^3/ul (0.83-4.51); Lymphocyte % 22.7 % (19-41); Mean Corp Hgb Conc 34.1 g/dL (32-36); Mean Corpuscular Hgb 31.3 pg (27.0-32.0); Mean Corpuscular Volume 91.7 fL (81-99); Mean Platelet Vol. 11.6 fl (6.2-12.0); Monocyte# 0.57 X10^3/uL; NRBC Flagged by Analyzer 0 % (0-5); Neutrophil # 7.79 X10^3/uL (2.7-7.7); Neutrophil % 69.1 % (47-70); Platelet Count 297 K/mm3 (150-450); RBC Distribution Width CV 12.8 % (11.6-14.6); RBC Distribution Width SD 42.3 fl (35.1-43.9); Red Blood Count 3.87 M/mm3 (4.2-5.4); White Blood Count 11.3 K/mm3 (4.4-11.0)
[2024-05-03] MEDS: Acetaminophen 500 MG Tablet 1000 MG PO ×4 (06:08→23:44)
[2024-05-03] MEDS: Sodium Citrate/Citric Acid 30 ML UDC PO (07:14)
--- NOTE | 2024-05-03 07:21 | HP.PCM_ITS ---
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 Is patient in pain?: No Feel stressed/tense/nervous/anxious/difficulty sleeping: not at all Allergies Sulfa (Sulfonamide Antibiotics) Allergy (Mild, Verified 04/29/24 09:27) other Medications ?Medication ?Instructions ?Recorded ?Confirmed ?Type cholecalciferol (vitamin D3) 50 50 mcg PO DAILY 03/17/23 04/29/24 Histor y mcg (2,000 unit) capsule multivitamin no.47-iron fum 27 1 cap PO DAILY 03/17/23 04/29/24 History mg-folate no.1 1 mg-dha 300 mg capsule (PNV-DHA) Last Menstrual Period: 08/02/23 Zika: Zika virus screening: Negative : No Have you fallen in the past year?: No PFSH PFSH Medical History Hx of abnormal cervical Pap smear Incomplete Delivery with history of Seasonal allergies Family planning, IUD (intrauterine device) check/reinsertion/removal Grand mal seizure Anxiety and depression Surgical History History of dilation and curettage Family History Brother DiabetesGrandmother DiabetesMother Hypertension Social History adopted: No household members: spouse and children number of children: 1 current occupational status: unemployed current occupation: [employer] current occupational exposures/hazards: No pets and animals: Yes (not managing litterbox) pets and animals: cat(s) history of recent travel: Yes ([place] in [place]) out of state: Yes out of country: No sexually active: Yes Smoking Status: Former smoker Tobacco: How many years used: 5 how long ago did patient quit smoking: Pt quit March 2019 alcohol intake: never substance use type: does not use well-balanced diet: daily or most days caffeine: Yes Type: coffee Number of servings: 2 eating out: rarely or never during the past year weight has: remained stable what type of physical activity do you participate in: yoga frequency: 1-2 times per week duration: 15-30 minutes/day jillian/advent: Non-Hoahaoism/Independent seatbelt use: always do you feel safe at home: Yes additional social history: [employer] History 3 Elective abortions Hx Para 1 Spontaneous abortions 1 Hx # Term Pregnancies Ectopic pregnancies Hx # Pregnancies Multiple births # of living children 1 Past Pregnancies Del. Date Name GA/Weeks Outcome Route Bth Weight Infant Gen Labor Lgth Anesthesia Del Locatn Provider FOB 12/19/19 Jessie 37 live - full term 4lb 9oz Female epidural [facility] 03/27/23 misscarriage 10 spontaneous [facility] Delivery Date: 12/19/19 Last Updated by: Stephani Uribe NRFHT SGA PROM HPI 40 WK OB Details: RAMÍREZ SKY is a 38 year old who presents for routine OB visit. OB Visit BETY Calculator Estimated Delivery Date Method Current WG Current Estimate 05/08/24 LMP (Certain) 38w 5d Other Estimates 05/08/24 Ultrasound #1 38w 5d Expected Delivery Route/Plan RLTCS with SM, does not want TOLAC Specific Issue/Plans Covid status: [] Flu vaccine: declines Tdap vaccine: given Rhogam: [na LARC form signed: yes movement and labor precautions reviewed. Problem list reviewed and updated with the most current plan of care details and appropriate orders placed. Relevant counseling for the gestational age provided. Continue routine care and follow up unless otherwise noted in visit notes/problem list details Initial Weight: Not Recorded Date -?-?-?-?-?-?-?-?-?-?-?-?- EGA Weight BP Urine Prot -?-?-?-?-?-?-?-?-?-?-?-?- Glucose FHR FuHt Pres Dilation -?-?-?-?-?-?-?-?-?-?-?-?- Effaced St Visit Note 10/12/23-?-?-?-?-?-?-?-?-?-?-?-?- 10w 1d 138 lb 112/73 -?-?-?-?-?-?-?-?-?-?-?-?- 160 -?-?-?-?-?-?-?-?-?-?-?-?- SM- CRL 2cm cons with LMP 11/12/23-?-?-?-?-?-?-?-?-?-?-?-?- 14w 4d 144 lb 102/67 Negative -?-?-?-?-?-?-?-?-?-?-?-?- Negative 155 -?-?-?-?-?-?-?-?-?-?-?-?- KW- no vb/cramping. Anatomy US ordered. doing well. considering AFP 12/10/23-?-?-?-?-?-?-?-?-?-?-?-?- 18w 4d 148 lb 8 oz 105/69 Negative -?-?-?-?-?-?-?-?-?-?-?-?- Negative 148 -?-?-?-?-?-?-?-?-?-?-?-?- JV- no lof, vaginal bleeding, or cramping. declines AFP. anatomy scan is 12/1401/06/24-?-?-?-?-?-?-?-?-?-?-?-?- 22w 3d 156 lb 2 oz 108/72 Negative -?-?-?-?-?-?-?-?-?-?-?-?- Negative 153 -?-?-?-?-?-?--?-?-?-?-?-?- -No VB, LOF. Good FM. Denies concerns. Larc 02/02/24-?-?-?-?-?-?-?-?-?-?-?-?- 26w 2d 158 lb 110/66 Negative -?-?-?-?-?-?-?-?-?-?-?-?- Negative 154 -?-?-?-?-?-?-?-?-?-?-?-?- MH-NO VB, LOF. Good FM. 28 wk labs pending 02/17/24-?-?-?-?-?-?-?-?-?-?-?-?- 28w 3d 156 lb 6 oz 104/67 Negative -?-?-?-?-?-?-?-?-?-?-?-?- Negative 140 27 -?-?-?-?-?-?-?-?-?-?-?-?- JV- no complaints today. tdap today. thinking of the name [place] for baby. 02/29/24-?-?-?-?-?-?-?-?-?-?-?-?- 30w 1d 156 lb 99/65 Negative -?-?-?-?-?-?-?-?-?-?-?-?- Negative 140 27 -?-?-?-?-?-?-?-?-?-?-?-?- KW- no vb/lof/ctx. good fm. Requesting tubal. growth US ordered. 03/31/24-?-?-?-?-?-?-?-?-?-?-?-?- 34w 4d 162 lb 8 oz 110/73 Negative -?-?-?-?-?-?-?-?-?-?-?-?- Negative 131 34 -?-?-?-?-?-?-?-?-?-?-?-?- JV- no lof, vaginal bleeding, or dec fm. no complaints. 04/07/24-?-?-?-?-?-?-?-?-?-?-?-?- 35w 4d 160 lb 8 oz 107/71 Trace -?-?-?-?-?-?-?-?-?-?-?-?- Negative 130 34 -?-?-?-?-?-?-?-?-?-?-?-?- SM- no vb lof good fm no regular ctx SM- no vb lof good fm no regular ctx repeta growth 04/13/24-?-?-?-?-?-?-?-?-?-?-?-?- 36w 3d 162 lb 2 oz 106/72 Negative -?-?-?-?-?-?-?-?-?-?--?-?- Negative 120 33 -?-?-?-?-?-?-?-?-?-?-?-?- SM- no vb lof good fm no regular ctx discussed IUGR diagnosis, get NST today and [facility] consult 04/20/24-?-?-?-?-?-?-?-?-?-?-?-?- 37w 3d 165 lb 6 oz 99/67 Negative -?-?-?-?-?-?-?-?-?-?-?-?- Negative 130 35 -?-?-?-?-?-?-?-?-?-?-?-?- SM- no vb lof good fm no regular ctx, repeat growth WNL at [facility] 04/29/24-?-?-?-?-?-?-?-?-?-?-?-?- 38w 5d 166 lb 4 oz 101/70 Negative -?-?-?-?-?-?-?-?-?-?-?-?- Negative 130 36 -?-?-?-?-?-?-?-?-?-?-?-?- SM- SM-novb lof good fm n oreuglar ctx preop done ACOG First Trimester First Trimester: Desire for , Alcohol, Tobacco Cessation, Illicit/Recreational Drug/Substance Use, Intimate Partner Violence, Barriers to care, Unstable Housing, Communication Barriers, Environmental/Work Hazards, Anticipated Course of Care, Toxoplasmosis Precations, Use of Any medications, Sexual activity, Exercise, Dental Care, Sauna/Hot tub use, Seat Belt use, Childbirth classes/Hospital facilities, Travel, Indications for Ultrasound and Screening for Aneuploidy; Discussed Second Trimester Second Trimester: Signs and Symptoms of Labor, Selecting a care provider, Reproductive Life Planning & Contreception, Care Planning, Depression/Anxiety and Intimate Partner Violence; Discussed Tobacco Cessation Third Trimester Third Trimester: Pain Management Plans, Labor support person(s), Immediate Larc, Movement Monitoring, Signs and Symptoms of Preeclampsia, Feeding No and Family Medical Leave or Disability Forms; Discussed Trial of Labor after Counseling, Discussed Circumcision preference, Discussed Tobacco Cessation, Discussed Depression and Discussed Intimate Partner Violence ROS Const Reports system reviewed and no additional complaints, except as documented Card Reports system reviewed and no additional complaints, except as documented Resp Reports system reviewed and no additional complaints, except as documented GI Reports system reviewed and no additional complaints, except as documented and Reports nausea Reports system reviewed and no additional complaints, except as documented Musc Reports system reviewed and no additional complaints, except as documented Exam Const General: cooperative, healthy appearing, comfortable and anxious HENMT Head: normal to inspection Nose: external nose normal Face and sinus: normal facial exam Neck Neck: normal visual inspection, full ROM and no lymphadenopathy Thyroid: thyroid normal Chest Chest palpation & inspection: normal inspection of the chest Resp Effort & Inspection: normal respiratory effort GI Inspection: normal to inspection Palpation: soft and other (gravid uterus) Other: infant vertex and appropriate size for gestational age Other: Cervical Exam: Extrem General: pedal edema Results POC Urinalysis 2 Dip (Clinic) Office Urine Glucose Negative Last Edit by Kay Cody on 04/29/24 09:32 Office Urine Protein Negative Last Edit by Kay Cody on 04/29/24 09:32 Coding Level of Care Code OB Routine Diagnoses Multigravida of advanced maternal age in second trimester O09.522 Trimester: second trimester Previous section Z98.891 Supervision of high risk in second trimester O09.92 Trimester: second trimester 38 weeks gestation of Z3A.38 Weeks of gestation: 38 weeks Assessment and Plan Assessment and Plan (1) AMA (advanced maternal age) multigravida 35+: Status: Acute Qualifiers: Trimester: second trimester Qualified Code(s): O09.522 - Supervision of elderly multigravida, second trimester Comment: genetic counseling provided, plan NIPT. growth US at 36 weeks and delivery 39 csection (2) Previous section: Status: Acute Comment: pt requests planned c section this with BTO RLTCS BS scheduled for 05/03 @ 7:15 with (3) Supervision of high-risk : Status: Acute Qualifiers: Trimester: second trimester Qualified Code(s): O09.92 - Supervision of high risk , unspecified, second trimester Comment: PRRG3,P1, BETY 05/08/24, boy [facility] Jessie, [facility]. (4) : Status: Acute Qualifiers: Weeks of gestation: 38 weeks Qualified Code(s): Z3A.38 - 38 weeks gestation of Comment: GBS Negative, elects NIPT only carrier ntd screen declined, normal anatomy Orders: Orders POC Urinalysis 2 Dip (Clinic) Today plan RLTCS After discussing the patient's diagnosis and treatment plan options, patient wishes to proceed with surgical management. I have discussed with the patient the risks, benefits, and alternatives of the procedure which include but are not limited to risks of anesthesia, bleeding, infection, possible damage to bowel, bladder, or surrounding vasculature which could lead to additional surgery to evaluate any complications. Patient agrees to procedure and wishes to proceed. ACOG/uptodate references given for additional information regarding procedure. UPDATE- I have seen the patient and performed any clinically relevant updates to the history and physical exam. Juana Duncan MD
--- NOTE | 2024-05-03 07:21 | EX.PCM.OBRPT ---
Assessment & Plan (1) AMA (advanced maternal age) multigravida 35+: QUALIFIERS: Trimester: second trimester Qualified Code(s): O09.522 - Supervision of elderly multigravida, second trimester COMMENT: genetic counseling provided, plan NIPT. growth US at 36 weeks and delivery 39 csection (2) Previous section: COMMENT: pt requests planned c section this with BTO RLTCS BS scheduled for 05/03 @ 7:15 with (3) Supervision of high-risk : QUALIFIERS: Trimester: second trimester Qualified Code(s): O09.92 - Supervision of high risk , unspecified, second trimester COMMENT: PRRG3,P1, BETY 05/08/24, boy [place] [facility] Jessie, Solitario. (4) : QUALIFIERS: Weeks of gestation: 38 weeks Qualified Code(s): Z3A.38 - 38 weeks gestation of COMMENT: GBS Negative, elects NIPT only carrier ntd screen declined, normal anatomy (5) delivery delivered: COMMENT: RLTCS BS Renny (6) Status post bilateral salpingectomy: Maternal Data Information BETY Calculator Estimated Delivery Date Method Current WG Current Estimate 05/08/24 LMP (Certain) 39w 2d Other Estimates 05/08/24 Ultrasound #1 39w 2d Final BETY Source: LMP Operative Report (OB) Cecarean Details Procedure Type: low transverse Date of Procedure: 05/03/24 Procedure Start Time: 07:38 Procedure Stop Time: 08:32 Pre-Operative Diagnosis: Other Other Pre-Operative diagnosis: see a/p comments Post-Operative Diagnosis: Same as Pre-operative diagnosis Classification: Scheduled (RLTCS and BS) Type of Anesthesia: Spinal Special Medications: none Antibiotic Given: Ancef 2 grams IV x1 Drain: Ruby to straight drain Estimated Blood Loss: 600 Fluids Replaced: crystalloid Findings Description of surgery: . Spinal anesthesia was placed without difficulty. Ruby catheter was placed. The patient was placed in the dorsal supine position with leftward tilt. Patient was prepped and draped in the normal sterile fashion. Pfannenstiel skin incision was made with the scalpel and carried through to the underlying layer of fascia with the scalpel. Fascia was nicked in the midline and the incision extended laterally. The rectus bellies were dissected off superiorly and inferiorly with out complication both sharply and bluntly. The peritoneum was entered digitally. The incision was stretched and a low transverse uterine incision was made with the scalpel. The infant's head was delivered atraumatically followed by the anterior and posterior shoulders without complication the rest of the delivered. The cord was clamped and cut and the infant was handed off to awaiting nurse. The placenta was delivered spontaneously immediately following and was noted to be intact and have a three-vessel cord. The uterus was exteriorized cleared of all clots and debris, and the incision was closed in a double layer closure using #1 Monocryl. additional sutures needed on right side of incision for hemostasis and hemoblast needed. The ovaries and fallopian tubes were noted to be within normal limits. The uterus was returned to the maternal abdomen and gutters were cleared of all clots and debris. Patient had desired sterilization and was counseled preoperatively regarding irreversibility and permanency. Therefore bilateral fallopian tubes were elevated and transected across using a LigaSure device starting proximally to distally without complication the entire fallopian tubes were removed. The peritoneum was closed with 3-0 Monocryl in a running fashion. Gloves were changed prior to fascial closure. Fascia was closed with 0 PDS in a running fashion. Subcutaneous tissue was copiously irrigated and the skin was closed with 3-0 Monocryl in a subcuticular fashion. Mepilex dressing was applied without complication. Patient was taken to recovery in stable condition. Surgical findings: anterior placenta increased uterine venous sinuses nl ovaries and tubes Presentation: Vertex Amniotic Membrane Rupture Type: Artificial Amniotic Fluid Description: Clear Specimen collected: Yes Description of specimen(s) removed: placenta and baby Cord Vessel Description: 3 Vessels Delayed Cord Clamping: Yes Fan Installer yarn packer: Yes Engineer Automated Equipment: Jonathan Roche Tasks completed by first officer and flight instructor: Opening & closing, Retracting and Other (assisting in delivery of the ) Additional patient observation assistant?: No Complications Complications: No Admit VTE Documentation VTE Present on Admission: No VTE Mechan Device Prophylaxis: SCD's Procedures Urinary/Genital [id number]: 64712 Delivery [facility]
--- NOTE | 2024-05-03 07:22 | DCINST_ITS ---
Discharge Instructions Diet Discharge Diet: No restrictions Dressing / Incision Discharge Activity: May Not Drive (for 2 weeks or while taking narcotic pain medications.), May Shower and May Take a Tub Bath (in 7 days) May shower in (days): 0 May resume sexual activity in: 4-6 weeks Weight Bearing Status: Full weight bearing Lifting Restrictions: 20 pounds Dressing / Incision Call your doctor if your incision/area has: Continuous Slow Oozing, Sudden Increased Bleeding, Increased Pain/ Swelling, Increased Redness and Foul Smell ing Discharge Call your doctor if you observe: Fever of 101 or Higher and Using more than 1 pad per hour (for 2 hours) Suture Line Care: Avoid Pulling/Pushing and Avoid Pinching/Bending Cleanse incision/area with: Soap & Water and Keep Dressing Clean & Dry Follow Up Care Please Follow Up With: Juana Duncan MD When: Call [phone] to make an appointment for an incision check in 1-2 weeks. Test Results: Test results from this visit will be discussed in further detail at your follow- up appointment, if applicable. Discharge Plan Admission Admit Date/Time: 05/03/24 05:04 Attending Provider: Juana Duncan Primary Care Provider: Care Physician,Litzy Primary Discharge Orders/Prescriptions Referrals / Follow Up: Care Physician,No Primary [Primary Care Provider] -
--- NOTE | 2024-05-03 07:22 | PCM.DC ---
Discharge Instructions Diet Discharge Diet: No restrictions DC O2, CPAP, BIPAP needs Home O2 Discharge instructions: No Dressing / Incision Discharge Activity: May Not Drive (for 2 weeks or while taking narcotic pain medications.), May Shower and May Take a Tub Bath (in 7 days) May shower in (days): 0 May resume sexual activity in: 4-6 weeks Weight Bearing Status: Full weight bearing Lifting Restrictions: 20 pounds Dressing / Incision Call your doctor if your incision/area has: Continuous Slow Oozing, Sudden Increased Bleeding, Increased Pain/ Swelling, Increased Redness and Foul Smelling Discharge Call your doctor if you observe: Fever of 101 or Higher and Using more than 1 pad per hour (for 2 hours) Suture Line Care: Avoid Pulling/Pushing and Avoid Pinching/Bending Cleanse incision/area with: Soap & Water and Keep Dressing Clean & Dry Follow Up Care Please Follow Up With: Juana Duncan MD When: Call [phone] to make an appointment for an incision check in 1-2 weeks. Test Results: Test results from this visit will be discussed in further detail at your follow-up appointment, if applicable. Discharge Plan Admission Admit Date/Time: 05/03/24 05:04 Attending Provider: Juana Duncan Primary Care Provider: Care PhysicianLitzy Primary Discharge Orders/Prescriptions Prescriptions: New oxycodone-acetaminophen [Percocet] 5-325 mg tablet 1 tab PO Q4H PRN (Reason: pain) 7 Days Qty: 20 0RF naproxen 500 mg tablet 500 mg PO BID PRN PRN (Reason: Pain) Qty: 30 1RF Referrals / Follow Up: Care PhysicianLitzy Primary [Primary Care Provider] - Disposition Disposition (needs filled in before D/C Order can be placed): Home, Self Care
[2024-05-03] MEDS: Cefazolin 2 GM in Syringe IV (07:28)
--- NOTE | 2024-05-03 07:55 | FALS_PTH ---
PATIENT: RAMÍREZ SKY LOC: [facility] U#:[id number] AGE/SX: 38/F ROOM: [facility] RE05/03/[address]: Dr. Juana Duncan MD : 1985 BED: 1 DIS: 05/04/2024 SPEC #: [id number] RECD: 05/03/24 09:27 STATUS: SUMAN WENDI #: [id number] GLORIA: 05/03/24 07:[address]: Juana Duncan DEPT: SURGICAL PATHOLOGY RECD BY: Sharita Rocha ENTERED: 05/03/24 09:44 SP TYPE: FALL TUBES OTHR DR: No Primary Care Phys Tissues: Fallopian tube Procedures: Surgery Specimen Level II HEADER OPERATION: Tubal ligation PRE-OP DIAGNOSIS: Sterilization TISSUE SUBMITTED: Bilateral fallopian tubes - suture in right MICROSCOPIC DIAGNOSIS Bilateral fallopian tubes, salpingectomy: Bilateral fallopian tubes, no pathologic diagnosis. SJ: 05/04/2024 MICROSCOPIC DESCRIPTION Slides are reviewed. GROSS DESCRIPTION Received in fixative is one container labeled with the patient's name and designated bilateral fallopian tubes - suture on right. The specimen consists of bilateral fallopian tubes including fimbrial ends. Right fallopian tube measures 9cm in length and 0.8cm in diameter and left fallopian tube measures 8 cm in length and 1 cm in diameter. Sections reveal unremarkable cut surfaces. Yard Warehouse Worker sections are submitted in two cassettes as follows: 1- right fallopian tube, 2- left fallopian tube / ANKIT: 05/03/2024 TC:4 CPT: 86208 x2
[2024-05-03 08:40] LABS: Syphilis Antibodies Non-reactive
[2024-05-03] MEDS: Ketorolac 30 MG/ML Syringe IV ×3 (08:58→22:16)
[2024-05-03] MEDS: Oxytocin 15 Units/NS 250ml 15 UNITS/250 ML IV.SOLN 83 UNITS IV (09:02)
[2024-05-03 09:26] LABS: Pathology Specimen OB SEE PATHOLOGY REPORT
[2024-05-03] MEDS: proCHLORPERazine 10 MG/2 ML Vial IV (10:04)
[2024-05-03] MEDS: 0.9% Saline Lock 10 ML Syringe IV (22:16)
[2024-05-04 02:30] VITALS: BP 107/67; PULSE 72; RESP 16; TEMP 36.6; O2SAT 98
[2024-05-04] MEDS: 0.9% Saline Lock 10 ML Syringe IV (04:23)
[2024-05-04] MEDS: Ketorolac 30 MG/ML Syringe IV (04:23)
[2024-05-04] MEDS: Acetaminophen 500 MG Tablet 1000 MG PO ×2 (05:57→12:37)
[2024-05-04 06:10] LABS: Hematocrit 28.6 % (37-47); Hemoglobin 9.7 g/dL (12.0-15.0); Mean Corp Hgb Conc 33.9 g/dL (32-36); Mean Corpuscular Volume 91.4 fL (81-99); Mean Platelet Vol. 10.4 fl (6.2-12.0); Platelet Count 205 K/mm3 (150-450); RBC Distribution Width CV 12.9 % (11.6-14.6); RBC Distribution Width SD 42.3 fl (35.1-43.9); Red Blood Count 3.13 M/mm3 (4.2-5.4); White Blood Count 11.1 K/mm3 (4.4-11.0)
--- NOTE | 2024-05-04 07:53 | PCM.PN.OB ---
Subjective Subjective Patient doing well without complaints. Tolerating PO. Ambulating and voiding without difficulty. Feeding well. Denies chest pain, shortness of breath, calf pain/swelling, fevers, chills, lightheadedness. Objective Data Objective Data Vital Signs: Vital Signs Temp Pulse Resp BP Pulse Ox O2 Del Method 98 F 72 16 107/67 98 Room Air 05/04/24 02:30 05/04/24 02:30 05/04/24 02:30 05/04/24 02:30 05/04/24 02:30 05/04/24 02:30 Oxygen Delivery Method Room Air Weight: 167 lb 8.821 oz Body Mass Index (BMI) 26.2 Intake & Output: Intake and Output for Last 24 Hours 05/02/24 05/03/24 05/04/24 23:59 23:59 23:59 Intake Total 1270 / 1270 Output Total 1000 / 1000 300 / 300 Balance 270 / 270 -300 / -300 Lab / Micro Data 05/04/24 06:00 Labs: Laboratory Results - last 24 hr 05/03/24 05:35: Syphilis Total Ab Non-reactive 05/04/24 06:00: WBC 11.1 H, RBC 3.13 L, Hgb 9.7 L, Hct 28.6 L, MCV 91.4, MCH 31.0, MCHC 33.9, RDW Std Deviation 42.3, RDW Coeff of Christine 12.9, Plt Count 205, MPV 10.4 Physical Exam Const alert and oriented x3 General Appearance: cooperative and comfortable HEENT normocephalic Eyes PERRL Neck full ROM Resp normal respiratory effort GI soft to palpation GI Narrative: FF below U. Dressing dry and intact Palpation: tender other (appropriately) Assessment & Plan (1) delivery delivered: COMMENT: RLTCPatrick BS SM Renny (2) Status post bilateral salpingectomy: COMMENT: 05/03/24 SM - w/cs PLAN: Plan s/p LTCS PPD # 1 1. routine post care 2. breast feeding- support given 3. rh positive 4. rubella immune 5. home today
[2024-05-04 08:22] VITALS: BP 100/62; PULSE 79; RESP 16; TEMP 36.6
--- NOTE | 2024-05-04 10:36 | CASEMGMT ---
Social Work Assessment Labor and Delivery Unit Patient Address:[address] [place] [address] [place] [address] Phone number: [phone] Date of Referral: 05/03/24 Time of Referral:? 713 Referred By: Dr. Duncan Date of Intervention: ?05/04/24? Time of Intervention:? 949 Reason for Referral:? mental health Sw completed chart review and acknowledges social work consult. Sw presented to bedside and introduced self to mother of baby (MOB- Cris) and father of baby (FOB- oSlitario Lopez). Sw explained reason for sw involvement and completed psychosocial assessment. History obtained from: medical records, MOB and FOB. Household composition: Currently residing in the family home is DI, SHARYN, their 4 year old daughter, Jessie, and baby. Parents deny any problems or concerns with housing, stating that it is safe and secure. Patient's parent/guardian status:?Parents have been together for 7 years after meeting while camping. No concerns reported of domestic violence or intimate partner violence. ?[place] baby is second child to parents together. Medical History: ?DI is 38 year old female who is 3, para 1- now 2 following labor and delivery of . DI received routine care during with [place]. DI presented to hospital on 05/03/24 for scheduled repeat at 40 weeks gestation. Baby boy, named Renny Lee, was born weighing 6lb 5oz with apgars of 9 and 9 at one and five minutes of life, respectfully. DI is breast feeding and reports baby will be followed by Dr. Mcekon. Educational Status:? Both parents graduated from high school and have some college education but no degree. 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 Infant Supplies: Parents have obtained all necessary baby supplies, including: car seat, safe sleep space, clothes, diapers and wipes. Childcare/Caregiver(s): MOB will be the primary caregiver to baby, along with FOB when he is not working. Transportation:?? Both parents have their drivers license and reliable means of transportation. No barriers. Programs/Agencies Involved: Parents are not connected to any community agencies that provide financial assistance as they are over income. Children Services/Legal Issues:??? No history of children services involvement, no issues or concerns warranting referral to be made. Behavioral Health Issues: ??Mental Health History: SHARYN denies mental health history. DI reports that she has history of anxiety and depression, however she feels those diagnoses are managed as she has recently been diagnosed with ADHD. DI states that being diagnosed with ADHD made a lot of sense to her and she has started to incorporate new organizational skills that have been helping her. DI denies need for medication to help her manage her mental health symptoms. ??? Substance Use History:??Parents deny substance use prior to and during . Family History:??Parents deny family history of substance use/ addiction or significant mental health diagnoses. ??? Drug Screens: No drug screens observed while completing chart review. Family/Social Stressors:? Parents deny any problems, concerns or stressors at this time. Support Systems: DI identifies that her mom, friends, SONGB and some of SHARYN's friends are her biggest supports. Depression/Shaken Baby/Safe Sleeping: Scott educated parents on signs and symptoms of baby blues and depression and anxiety. MOB states that after her daughter was born she felt slightly anxious, but did not have any symptoms that lasted long enough to cause any problems. MOB states that at this time she feels really good, denies feeling sad, anxious, depressed or tearful. MOB states that she feels a carias/ connection to baby. SHARYN reports that if DI were to struggle with her mental health during this period he would be able to recognize that and would know how to help hand support her. Scott educated parents on shaken baby prevention and ABCs of safe sleep. Parents express understanding. ASSESSMENT:? MOB and baby admitted following labor and delivery of . DI has history of anxiety and depression and recently diagnosed with ADHD. MOB states that after her daughter was born she had some anxiety related to hormonal changes, but it did not last long and she did not require medication. Parents were talkative and engaging throughout completion of psychosocial assessment. Conversation with parents flowed naturally and easily. Parents appear to have strong relationship and are supportive to one another. DI was laying comfortably in bed and SHARYN was comfortable on couch. Baby was not in room as he was getting circumcised while sw completed assessment. Paretns have obtained all necessary baby supplies and have natural supports in place. PLAN:?? No other services requested or indicated. MOB and baby to be discharged when medically ready. Parents were provided literature regarding: signs and symptoms of baby blues and mood and anxiety disorders, Help Me Grow, shaken baby prevention, ABCs of safe sleep and a list of county resources that are available for them should any needs present themselves. Jorge Alberto Dawson, VICE PRESIDENT SAFETY, UPHOLSTERER OUTSIDE
[2024-05-04] MEDS: Senna/Docusate Sodium 1 Tablet PO (10:40)
[2024-05-04] MEDS: Naproxen 500 MG Tablet PO (10:41)
[2024-05-04 10:58] LABS: Absolute Lymphocyte Count 1.17 X10^3/uL (0.83-4.51); Absolute Neutrophil Count 9.6 X10^3/uL (2.0-7.7); Basophil# 0.04 X10^3/uL; Basophil% 0.3 % (0-1); Eosinophil# 0.07 X10^3/uL; Eosinophils% 0.6 % (0-5); Hematocrit 29.6 % (37-47); Hemoglobin 10.2 g/dL (12.0-15.0); Lymphocyte # 1.17 X10^3/ul (0.83-4.51); Lymphocyte % 10.1 % (19-41); Mean Corp Hgb Conc 34.5 g/dL (32-36); Mean Corpuscular Hgb 32.1 pg (27.0-32.0); Mean Corpuscular Volume 93.1 fL (81-99); Mean Platelet Vol. 10.9 fl (6.2-12.0); Monocyte# 0.62 X10^3/uL; Monocyte% 5.3 % (0-10); NRBC Flagged by Analyzer 0 % (0-5); Neutrophil # 9.59 X10^3/uL (2.7-7.7); Neutrophil % 82.8 % (47-70); Platelet Count 241 K/mm3 (150-450); RBC Distribution Width CV 12.9 % (11.6-14.6); RBC Distribution Width SD 43.8 fl (35.1-43.9); Red Blood Count 3.18 M/mm3 (4.2-5.4); White Blood Count 11.6 K/mm3 (4.4-11.0)
== END 2024-05-04 13:50 | disposition home or self-care (01) | DRG 785 ==
PROVIDERS: Nurse Practitioner Women's Health; Admitting Provider Obstetrics & Gynecology; Referring Provider Obstetrics & Gynecology; Visit Provider Obstetrics & Gynecology
PROC: 10D00Z1 Extraction of Products of Conception, Low, Open Approach (ICD-10-PCS; CPT 59514; principal; 2024-05-03 07:00)
DX: O34.211 Maternal care for low transverse scar from previous cesarean delivery (principal); O90.81 Anemia of the puerperium; Z30.2 Encounter for sterilization; Z37.0 Single live birth; Z3A.39 39 weeks gestation of pregnancy
CPT/HCPCS: 59025; 59050; 85025; 85027; 86780; 86850; 86900; 86901; 88302; A4216

== ENCOUNTER → 2024-06-13 | Outpatient (CLI) | payer OTHER, SELFPAY ==
[2024-06-15 14:08] LABS: HPV APTIMA, High Risk Negative (Negative)
== END | disposition home or self-care (01) ==
PROVIDERS: Visit Provider Obstetrics & Gynecology
DX: Z12.4 Encounter for screening for malignant neoplasm of cervix (principal)
CPT/HCPCS: 87624; 88175; G0145